=== PATIENT | female | born 1940 | race Caucasian/White ===

== ENCOUNTER → 2018-02-05 08:09 | Outpatient (CLI) | payer MEDICARE, OTHER, SELFPAY | PROVIDERS: PCP Family Medicine; Visit Provider Nurse Practitioner Gerontology | DX: C50.912 Malignant neoplasm of unspecified site of left female breast (principal); Z53.9 Procedure and treatment not carried out, unspecified reason ==

== ENCOUNTER → 2018-08-07 08:02 | Outpatient (CLI) | payer MEDICARE, OTHER, SELFPAY ==
[2018-08-07 08:59] LABS: Add Manual Diff / Slide Review NO; Basophils Percent Auto 0.4 % (0-2); Eosinophils Percent Auto 1.3 % (2-4); Hematocrit 45.6 % (36-46); Lymphocytes Percent Auto 23.6 % (25-40); Mean Corpuscular Hemoglobin 32.5 PG (26-34); Mean Corpuscular Volume 92.8 fL (80-100); Monocytes Percent Auto 8.5 % (3-14); Neutrophils Absolute Auto 4400 /uL (3000-5900); Neutrophils Percent Auto 66.2 % (50-75); Platelet Count 218 X10^3/uL (150-400); Red Blood Cell Count 4.92 X10^6/uL (4.0-5.2); Red Cell Distribution Width 14.3 % (11.6-14.8); White Blood Cell Count 6.7 X10^3/uL (4.5-11.0)
[2018-08-07 09:14] LABS: Alanine Aminotransferase 27 IU/L (9-52); Albumin 4.4 g/dL (3.5-5.0); Albumin Globulin Ratio 1.6 (1.0-2.8); Alkaline Phosphatase 88 U/L (38-126); Aspartate Aminotransferase 25 IU/L (14-36); BUN Creatinine Ratio 17.5 (6-22); Bilirubin Total 0.6 mg/dL (0.2-1.3); Blood Urea Nitrogen 14 mg/dL (7-17); Calcium 9.3 mg/dL (8.4-10.2); Carbon Dioxide 30 mmol/L (22-32); Chloride 94 mmol/L (98-107); Estimated Glomerular Filt Rate > 60.0 mL/min (>60); Globulin 2.8 g/dL (1.7-4.1); Glucose 117 mg/dL (80-110); HEMOLYSIS < 15 (0-50); Potassium 4.8 mmol/L (3.4-5.1); Sodium 134 mmol/L (137-145); Total Protein 7.2 g/dL (6.3-8.2)
[2018-08-07 09:57] LABS: Thyroid Stimulating Hormone 1.56 uIU/mL (0.47-4.68)
== END ==
PROVIDERS: PCP Family Medicine; Visit Provider Nurse Practitioner Gerontology
DX: C50.912 Malignant neoplasm of unspecified site of left female breast (principal); C81.91 Hodgkin lymphoma, unspecified, lymph nodes of head, face, and neck
CPT/HCPCS: 36415; 80053; 84443; 85025

== ENCOUNTER → 2019-08-12 09:30 | Outpatient (CLI) | payer MEDICARE, OTHER, SELFPAY | PROVIDERS: PCP Family Medicine; Visit Provider Internal Medicine Hematology & Oncology | DX: M85.851 Other specified disorders of bone density and structure, right thigh (principal); Z78.0 Asymptomatic menopausal state; C81.70 Other Hodgkin lymphoma, unspecified site; C50.912 Malignant neoplasm of unspecified site of left female breast; E07.1 Dyshormogenetic goiter; Z79.811 Long term (current) use of aromatase inhibitors; F17.200 Nicotine dependence, unspecified, uncomplicated | CPT/HCPCS: 77080; 77081 ==

== ENCOUNTER → 2019-10-08 07:45 | Outpatient (CLI) | payer MEDICARE, OTHER, SELFPAY ==
[2019-10-08 08:03] LABS: Add Manual Diff / Slide Review NO; Basophils Absolute Auto 100 /uL (0-100); Eosinophils Absolute Auto 200 /uL (0-450); Eosinophils Percent Auto 2.6 % (2-4); Hematocrit 46.5 % (36-46); Lymphocytes Absolute Auto 2000 /uL (1100-4500); Lymphocytes Percent Auto 27.1 % (25-40); Mean Corpuscular HGB Conc 34.5 % (30-36); Mean Corpuscular Hemoglobin 33.1 PG (26-34); Mean Corpuscular Volume 96.2 fL (80-100); Monocytes Absolute Auto 700 /uL (0-900); Monocytes Percent Auto 9.3 % (3-14); Neutrophils Absolute Auto 4400 /uL (1500-7000); Platelet Count 183 X10^3/uL (150-400); Red Blood Cell Count 4.83 X10^6/uL (4.0-5.2); Red Cell Distribution Width 14.4 % (11.6-14.8); White Blood Cell Count 7.3 X10^3/uL (4.5-11.0)
[2019-10-08 08:14] LABS: Alanine Aminotransferase 37 IU/L (<35); Albumin 4.3 g/dL (3.5-5.0); Albumin Globulin Ratio 1.5 (1.0-2.8); Alkaline Phosphatase 95 U/L (38-126); Aspartate Aminotransferase 35 IU/L (14-36); BUN Creatinine Ratio 37.3 (6-22); Bilirubin Total 0.8 mg/dL (0.2-1.3); Blood Urea Nitrogen 41 mg/dL (7-17); Calcium 9.3 mg/dL (8.4-10.2); Carbon Dioxide 29 mmol/L (22-32); Chloride 98 mmol/L (98-107); Estimated Glomerular Filt Rate 47.9 mL/min (>60); Globulin 2.9 g/dL (1.7-4.1); Glucose 119 mg/dL (80-110); HEMOLYSIS < 15 (0-50); Potassium 4.9 mmol/L (3.4-5.1); Sodium 135 mmol/L (137-145); Total Protein 7.2 g/dL (6.3-8.2)
== END ==
PROVIDERS: PCP Family Medicine; Visit Provider Internal Medicine Hematology & Oncology
DX: C50.912 Malignant neoplasm of unspecified site of left female breast (principal); C81.70 Other Hodgkin lymphoma, unspecified site
CPT/HCPCS: 36415; 80053; 85025

== ENCOUNTER → 2020-01-07 07:41 | Outpatient (CLI) | payer MEDICARE, OTHER, SELFPAY ==
[2020-01-07 08:11] LABS: Add Manual Diff / Slide Review NO; Basophils Absolute Auto 100 /uL (0-100); Basophils Percent Auto 0.9 % (0-2); Eosinophils Absolute Auto 200 /uL (0-450); Eosinophils Percent Auto 3.1 % (2-4); Hematocrit 47.1 % (36-46); Hemoglobin 15.7 g/dL (12.0-16.0); Lymphocytes Absolute Auto 2100 /uL (1100-4500); Lymphocytes Percent Auto 26.7 % (25-40); Mean Corpuscular HGB Conc 33.3 % (30-36); Mean Corpuscular Hemoglobin 32.5 PG (26-34); Mean Corpuscular Volume 97.6 fL (80-100); Monocytes Absolute Auto 800 /uL (0-900); Monocytes Percent Auto 9.8 % (3-14); Neutrophils Absolute Auto 4700 /uL (1500-7000); Neutrophils Percent Auto 59.5 % (50-75); Platelet Count 195 X10^3/uL (150-400); Red Blood Cell Count 4.82 X10^6/uL (4.0-5.2); Red Cell Distribution Width 14.1 % (11.6-14.8); White Blood Cell Count 7.9 X10^3/uL (4.5-11.0)
[2020-01-07 08:26] LABS: Alanine Aminotransferase 33 IU/L (<35); Albumin 4.3 g/dL (3.5-5.0); Albumin Globulin Ratio 1.4 (1.0-2.8); Alkaline Phosphatase 99 U/L (38-126); Aspartate Aminotransferase 34 IU/L (14-36); Bilirubin Total 0.8 mg/dL (0.2-1.3); Blood Urea Nitrogen 38 mg/dL (7-17); Calcium 9.6 mg/dL (8.4-10.2); Carbon Dioxide 31 mmol/L (22-32); Chloride 95 mmol/L (98-107); Estimated Glomerular Filt Rate 45.5 mL/min (>60); Glucose 120 mg/dL (80-110); HEMOLYSIS 40 (0-50); Lactate Dehydrogenase 546 U/L (313-618); Sodium 132 mmol/L (137-145); Total Protein 7.3 g/dL (6.3-8.2)
[2020-01-07 08:27] LABS: Potassium 5.9 mmol/L (3.4-5.1)
[2020-01-07 08:56] LABS: Thyroid Stimulating Hormone 2.77 uIU/mL (0.47-4.68)
== END ==
PROVIDERS: PCP Family Medicine; Referring Provider Internal Medicine Hematology & Oncology; Visit Provider Internal Medicine Hematology & Oncology
DX: C81.70 Other Hodgkin lymphoma, unspecified site (principal)
CPT/HCPCS: 36415; 80053; 83615; 84443; 85025

== ENCOUNTER → 2021-02-28 10:47 | Outpatient (CLI) | payer MEDICARE, OTHER, SELFPAY ==
--- NOTE | 2021-02-28 10:49 | DI.US.S_ITS ---
LIMITED ULTRASOUND OF LEFT BREAST AND AXILLA: 02/28/2021 CLINICAL: Palpable left breast lump and focal pain. Comparison is made to exams dated: 05/21/2016 ultrasound biopsy, 05/09/2016 ultrasound, and 05/09/2016 mammogram [facility]. Color flow ultrasound of the left breast axilla was performed. Toscano scale images of the real-time examination were reviewed. There is a large area of subcutaneous edema and increased vascularity in the upper-outer quadrant of the left breast with overlying skin thickening, which corresponds to the palpable abnormality. Within this area at the 2-3 o'clock position, there is a 2.7 x 0.6 x 1.0 cm irregular hypoechoic lesion that may represent an inflammatory phlegmon, postsurgical scarring, or less likely a solid mass. Multiple enlarged nodes are seen in the left axilla, the largest of which measures up to 5.5 x 2.3 x 5.8 cm. These are most likely reactive to the presumed infectious process in the left breast. IMPRESSION: PROBABLY BENIGN A 2.7 x 0.6 x 1.0 cm irregular hypoechoic lesion in the left breast with surrounding subcutaneous edema, increased vascularity, and skin thickening most likely represents mastitis and phlegmon without a drainable abscess visualized. Superimposed postsurgical scarring and posttreatment changes may be present. An underlying breast mass is not excluded. Recommend clinical treatment for infection and a short-term follow-up ultrasound in 3 months to demonstrate improvement or resolution of findings. If not improving, tissue biopsy could be performed. Contrast-enhanced breast MRI could be performed for further evaluation if indicated clinically. Multiple enlarged left axillary lymph nodes are likely reactive, although venkatesh metastatic disease or lymphoma could appear similarly. Recommend follow-up ultrasound in 3 months to revaluate the lymphadenopathy. If not improving, biopsy could be performed at that time. A follow-up left ultrasound in 3 months is recommended. This exam was interpreted at Station ID: [id number]. Electronically Signed By: Beryn howell:02/28/2021 12:57:29 copy to: SIMIN CORRAL letter sent: Followup Recommended Ultrasound BI-RADS: 3 Probably benign
== END ==
PROVIDERS: PCP Family Medicine; Referring Provider Internal Medicine Hematology & Oncology; Visit Provider Internal Medicine Hematology & Oncology
DX: C50.912 Malignant neoplasm of unspecified site of left female breast; N63.21 Unspecified lump in the left breast, upper outer quadrant; N64.4 Mastodynia; R59.0 Localized enlarged lymph nodes; R60.0 Localized edema
CPT/HCPCS: 76642

== ENCOUNTER → 2021-03-03 13:39 | Outpatient (CLI) | payer MEDICARE, OTHER, SELFPAY ==
--- NOTE | 2021-03-03 13:44 | DI.US.S_ITS ---
PROCEDURE: US PERIPH VENOUS UP EXTREM LT INDICATIONS: R/O DVT TECHNIQUE: Real-time imaging, as well as color and pulse Doppler interrogation, was performed of the bilateral upper extremity deep veins from the inferior neck to the antecubital fossa. COMPARISON: None. FINDINGS: The internal jugular vein, visualized portions of the subclavian vein, axillary, and brachial veins are free of intraluminal thrombus. Where physically possible, the veins are normally compressible. Color and pulse Doppler demonstrate normal intraluminal flow, with expected phasicity and pulsatility. Additional scanning of the cephalic and basilic veins of the superficial system demonstrate normal compressibility, without thrombus. IMPRESSION: No DVT found , left upper extremity. Dictated by: Himanshu Austin M.D. on 03/03/2021 at 15:11 Approved by: Himanshu Austin M.D. on 03/03/2021 at 15:12
== END ==
PROVIDERS: PCP Family Medicine; Referring Provider Specialist; Visit Provider Specialist
DX: R60.0 Localized edema (principal); L03.114 Cellulitis of left upper limb; Z90.13 Acquired absence of bilateral breasts and nipples
CPT/HCPCS: 93971; 99213

== ENCOUNTER 2021-03-14 16:10 | Inpatient (IN) | payer MEDICARE, OTHER, SELFPAY ==
[2021-03-14] VITALS (15 sets, daily range): BP systolic 96–127; BP diastolic 44–73; PULSE 93–117; RESP 18–37; TEMP 36.6–37.2; O2SAT 85–94; BMI 30.4
--- NOTE | 2021-03-14 16:29 | DI.RAD.S_ITS ---
PROCEDURE: XR CHEST 1V INDICATIONS: suspected sepsis TECHNIQUE: One view of the chest was acquired. COMPARISON: [facility], , CHEST 2 VIEW, 08/28/2012, 9:44. FINDINGS: Surgical changes and devices: None. Lungs and pleura: Mild diffuse interstitial prominence. There is a small left pleural effusion. Patchy left basilar airspace opacities are noted. Minimal streaky low right basilar opacities. No pneumothorax. Mediastinum: Mediastinal contours appear stable. Heart size is normal. Bones and chest wall: No suspicious bony lesions. Overlying soft tissues appear unremarkable. IMPRESSION: Patchy left basilar airspace opacities which may represent atelectasis and/or concurrent airspace disease/pneumonia. Small left pleural effusion. Streaky right basilar opacities likely representing atelectasis. Recommend follow up chest radiograph 4-6 weeks after treatment to document resolution of findings and/or return to baseline examination. Dictated by: Toni Teague M.D. on 03/14/2021 at 17:31 Approved by: Toni Teague M.D. on 03/14/2021 at 17:32
[2021-03-14 16:55] LABS: Alanine Aminotransferase 32 IU/L (<35); Albumin 3.9 g/dL (3.5-5.0); Albumin Globulin Ratio 1.4 (1.0-2.8); Alkaline Phosphatase 129 U/L (38-126); Aspartate Aminotransferase 48 IU/L (14-36); BUN Creatinine Ratio 23.6 (6-22); Bilirubin Total 0.4 mg/dL (0.2-1.3); Blood Urea Nitrogen 37 mg/dL (7-17); Carbon Dioxide 31 mmol/L (22-32); Chloride 87 mmol/L (98-107); Estimated Glomerular Filt Rate 31.7 mL/min (>60); Globulin 2.7 g/dL (1.7-4.1); Glucose 103 mg/dL (80-110); HEMOLYSIS < 15 (0-50); Lactate (Lactic Acid) 1.1 mmol/L (0.7-2.1); Lipase 128 U/L (23-300); Sodium 123 mmol/L (137-145); Total Protein 6.6 g/dL (6.3-8.2)
[2021-03-14 16:57] LABS: Potassium 5.9 mmol/L (3.4-5.1)
[2021-03-14 17:02] LABS: Add Manual Diff / Slide Review NO; Basophils Absolute Auto 100 /uL (0-100); Basophils Percent Auto 0.7 % (0-2); Eosinophils Absolute Auto 300 /uL (0-450); Eosinophils Percent Auto 3.9 % (2-4); Hematocrit 34.7 % (36-46); Hemoglobin 11.9 g/dL (12.0-16.0); Lymphocytes Absolute Auto 800 /uL (1100-4500); Lymphocytes Percent Auto 9.8 % (25-40); Mean Corpuscular HGB Conc 34.3 % (30-36); Mean Corpuscular Hemoglobin 32.7 PG (26-34); Mean Corpuscular Volume 95.3 fL (80-100); Monocytes Absolute Auto 600 /uL (0-900); Monocytes Percent Auto 7.9 % (3-14); Neutrophils Absolute Auto 6100 /uL (1500-7000); Neutrophils Percent Auto 77.7 % (50-75); Platelet Count 296 X10^3/uL (150-400); Red Blood Cell Count 3.64 X10^6/uL (4.0-5.2); Red Cell Distribution Width 16.6 % (11.6-14.8); White Blood Cell Count 7.9 X10^3/uL (4.5-11.0)
[2021-03-14 17:10] LABS: Procalcitonin 0.07 ng/mL (<0.5)
[2021-03-14 17:52] LABS: Creatine Kinase 63 U/L (30-135)
[2021-03-14 18:05] LABS: NT-proBNP (BNP-Adult 18+) 4030 pg/mL (<450); Troponin I < 0.012 ng/mL (0.01-0.034)
[2021-03-14] MEDS: SODIUM CHLORIDE 0.9% 1,000 ML 500 ML IV (18:58)
--- NOTE | 2021-03-14 19:11 | ED.GENADULT ---
HPI - General Adult General Chief complaint: Shortness of Breath/Dyspnea Stated complaint: sent by surgeons office to be treated Time Seen by Provider: 03/14/21 17:33 Source: patient Mode of arrival: Wheelchair History of Present Illness HPI narrative: Patient is an 80-year-old female. Is on anticoagulation for chronic atrial fibrillation. She has also had a history of breast cancer. Had a mastectomy done several years ago. States that since that time she occasionally gets infections around her left breast mastectomy surgery site. She states she currently has an infection there and is being treated with antibiotics. She has seen General surgery. She has also noticed that for the past several days she has been very short of breath on exertion. She denies any chest pain. She contacted the General surgery office because she felt that the infection in her left breast was not improving. She was told to come to the emergency department yesterday but did not because she [place] on [address] [place] could not make it over on the [place]. She arrives today for evaluation. Related Data Home Medications Medication Instructions Recorded Confirmed CA PANTOTHENATE/FOLIC ACID/VIT 1 tab PO QDAY #0 12/25/12 03/14/21 (MULTIVITAMIN) CHOLECALCIFEROL (VITAMIN D) 2,000 iu PO Q DAY #0 12/25/12 03/14/21 Lactobacillus acidophilus 1 tab PO QDAY #0 08/03/16 03/14/21 albuterol sulfate 90 mcg/actuation 2 puff INH HSP PRN #0 08/20/17 03/14/21 aerosol inhaler (Proventil HFA) levothyroxine 175 mcg tablet 0.15 mg PO QAM 08/07/18 03/14/21 albuterol sulfate 90 mcg/actuation 1 puff INHALATION Q4-6H PRN 02/03/19 03/14/21 aerosol inhaler (ProAir HFA) apixaban 5 mg tablet 5 mg PO BID 02/03/19 03/14/21 aspirin 81 mg chewable tablet 81 mg PO DAILY 02/03/19 03/14/21 atorvastatin 40 mg tablet 40 mg PO BEDTIME 02/03/19 03/14/21 furosemide 40 mg tablet 40 mg PO DAILY 02/03/19 03/14/21 lisinopril 5 mg tablet 5 mg PO DAILY 02/03/19 03/14/21 metoprolol succinate 25 mg capsule 25 mg PO BID 02/03/19 03/14/21 sprinkle, ext. release 24 hr multivitamin 1 cap PO DAILY 02/03/19 03/14/21 nicotine 21 mg/24 hr daily 1 patch TRANSDERMAL Q24H 02/03/19 03/03/21 transdermal patch (Nicoderm CQ) nitroglycerin 1 tab PRN 09/10/19 03/03/21 spironolactone 25 mg tablet 12.5 mg PO DAILY 09/10/19 03/14/21 tiotropium bromide 18 mcg capsule INHALATION 02/18/20 03/03/21 with inhalation device (Spiriva with HandiHaler) Previous Rx's Medication Instructions Recorded zoster vaccine live (PF) 19,400 0.5 ml SQ STAT #1 ml 11/09/16 unit/0.65 mL subcutaneous suspension (Zostavax (PF)) ciclopirox 8 % topical solution 3.3 ml TP QDAY #1 bot 05/22/17 (Ciclodan) exemestane 25 mg tablet (Aromasin) 25 mg PO QDAY #30 tab 01/30/21 cephalexin 500 mg capsule 500 mg PO QID #40 cap 03/03/21 sulfamethoxazole 800 1 tab PO Q12H #20 tab 03/10/21 mg-trimethoprim 160 mg tablet (Bactrim DS) Allergies Allergy/AdvReac Type Severity Reaction Status Date / Time acetaminophen [From TYLENOL] Allergy Severe RASH, Unverified 12/18/17 12:40 ITCHING cephalexin Allergy Intermediate Severe Verified 03/10/21 14:38 itching cortisone [CORTISONE] Allergy Intermediate HIVES Unverified 12/18/17 12:40 latex [LATEX] Allergy Mild WELTS Unverified 12/18/17 12:40 desoximetasone Allergy Unknown Rash Verified 08/07/18 14:02 omeprazole [From PRILOSEC] Allergy Unknown RASH Unverified 12/18/17 12:40 triamcinolone Allergy Unknown Rash Verified 08/07/18 14:03 Review of Systems Constitutional Comments: No fevers ENT Ears, Nose, Mouth, and Throat: Reports system reviewed and no additional complaints, except as documented Cardiovascular Comments: No chest pain Respiratory Comments: Shortness of breath on exertion Gastrointestinal Gastrointestinal: Reports system reviewed and no additional complaints, except as documented Genitourinary Genitourinary: Reports system reviewed and no additional complaints, except as documented Musculoskeletal Comments: Left arm swelling. This is not new Integumentary/Breasts Comments: Redness to the left-sided mastectomy site Neurologic Neurologic: Reports system reviewed and no additional complaints, except as documented Psychiatric Psychiatric: Reports system reviewed and no additional complaints, except as documented Endocrine Endocrine: Reports system reviewed and no additional complaints, except as documented Hematologic/Lymphatic On Anticoagulants: Yes Allergic/Immunologic Allergic/Immunologic: Reports system reviewed and no additional complaints, except as documented Patient History Medical History Breast cancer, left CHF (congestive heart failure) 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) Ischemic cardiomyopathy Status post bilateral mastectomy (11/09/16) Surgical History History of left heart catheterization Status post bilateral mastectomy Status post hysterectomy Family History Father Heart disease Polio Daughter Breast cancer in female Social History marital status: household members: spouse occupational status: employed Smoking Status: Current every day smoker alcohol intake: current substance use type: does not use Smoking Status: Never smoker Exam Initial Vital Signs Initial Vital Signs: Vital Signs Temperature 98.9 F 03/14/21 16:12 Pulse Rate 99 H 03/14/21 16:12 Respiratory Rate 24 03/14/21 16:12 Blood Pressure 127/62 03/14/21 16:12 Pulse Oximetry 92 03/14/21 16:12 Const General: cooperative and healthy appearing [facility] Head: normal to inspection and normocephalic Eyes General: appearance normal, both eyes and all related structures Neck Neck: normal visual inspection Chest Other: Left side mastectomy psych consistent with stated history Resp Auscultation: clear to auscultation bilaterally Cardio Rate: regular rate Rhythm: abnormal rhythm GI Inspection: normal to inspection Skin Other: Patient does have redness under some of the skin folds around her left breast mastectomy site. She does have dimpling of the skin. It is warm to the touch. No active drainage. Neuro General: patient alert, patient awake and patient oriented x3 Extrem Other: Swelling to her left upper extremity Psych Appearance: grossly normal and well kempt Course Orders Ordered: ED Orders 03/14/21 18:50 COVID19 - ADMIT ([employer] swab/PCR) Stat 03/14/21 19:37 Consult to General Surgery Stat Apixaban (Apixaban 5 Mg Tablet) 5 mg PO BID [facility] Last Admin: 03/15/21 00:16 Dose: 5 mg Documented by: ZACK Aspirin (Aspirin Ec 81 Mg Tablet) 81 mg PO DAILY [facility] Atorvastatin Calcium (Atorvastatin 20 Mg Tablet) 40 mg PO BEDTIME [facility] Last Admin: 03/15/21 00:15 Dose: 40 mg Documented by: ZACK Exemestane (Exemestane 25 Mg Tablet) 25 mg PO DAILY [facility] Furosemide (Furosemide 40 Mg/4 Ml Vial) 40 mg IV DAILY [facility] Ampicillin Sodium/Sulbactam (Sodium 3 gm/ Sodium Chloride) 100 mls @ 100 mls/hr IV Q6H [facility] Last Admin: 03/15/21 00:41 Dose: 100 mls/hr Documented by: ZACK Ipratropium [place] (Ipratropium 0.5 Mg/2.5 Ml Neb) 0.5 mg INH [id number] [facility] Last Admin: 03/14/21 22:36 Dose: 0.5 mg Documented by: HYUN Ipratropium [place] (Ipratropium 0.5 Mg/2.5 Ml Neb) 0.5 mg INH RTQ2HR PRN PRN Reason: Shortness Of Breath Or Wheezing Isosorbide Mononitrate (Isosorbide Mononitrate Er 30 Mg Tablet) 60 mg PO QACBREAK [facility] Levothyroxine Sodium (Levothyroxine 150 Mcg Tablet) 150 mcg PO 0600 [facility] Lisinopril (Lisinopril 5 Mg Tablet) 5 mg PO DAILY [facility] Metoprolol Succinate (Metoprolol Er 25 Mg Tablet) 25 mg PO BID [facility] Naloxone HCl (Naloxone 0.4 Mg/Ml Vial) 0.2 mg IV Q2MIN PRN PRN Reason: Opiate Reversal Nicotine (Nicotine 14 Patch) 14 mg TOP DAILY [facility] Last Admin: 03/15/21 00:16 Dose: Not Given Documented by: ZACK Nystatin (Nystatin Powder 15gm) 1 applic TOP TID PRN PRN Reason: Rash Last Admin: 03/15/21 00:15 Dose: 15 applic Documented by: ZACK Tramadol HCl (Tramadol 50 Mg Tablet) 50 mg PO BEDTIME [facility] Last Admin: 03/15/21 00:16 Dose: 50 mg Documented by: ZACK Discontinued Medications Furosemide (Furosemide 100 Mg/10 Ml Vial) 60 mg IV NOW ONE Stop: 03/14/21 19:26 Last Admin: 03/14/21 19:38 Dose: 60 mg Documented by: JOSELYNYLMARINA Sodium Chloride (Normal Saline 0.9%) 1,000 mls @ 1,000 mls/hr IV BOLUS ONE Stop: 03/14/21 17:27 Last Admin: 03/14/21 18:59 Dose: Not Given Documented by: ATAYLOR Sodium Chloride (Normal Saline 0.9%) 1,000 mls @ 500 mls/hr IV BOLUS ONE Stop: 03/14/21 19:33 Last Infusion: 03/14/21 20:00 Dose: 0 mls/hr Documented by: Admin: 03/14/21 18:58 Dose: 500 mls/hr Documented by: STEFANIA Vancomycin HCl (Vancomycin) 1,000 mg in 200 mls @ 200 mls/hr IV NOW ONE Stop: 03/14/21 20:24 Last Infusion: 03/14/21 21:00 Dose: 0 mls/hr Documented by: Infusion: 03/14/21 21:00 Dose: 0 mls/hr Documented by: Admin: 03/14/21 19:39 Dose: 200 mls/hr Documented by: STEFANIA Non-Formulary Medication (Tiotropium [place] [Spiriva With Handihaler]) 18 mcg INHALATION DAILY [facility] Vital Signs Vital signs: Vital Signs - 8 hr 03/14/21 19:30 Pulse Rate 98 H Respiratory Rate 26 H Pulse Oximetry 85 L Medical Decision Making Medical Records Medical records reviewed: Yes I reviewed the patient's medical records. Lab Data Lab results reviewed: Yes I reviewed the patient's lab results. Result diagrams: 03/14/21 16:35 03/14/21 16:35 Labs: Lab Results 03/14/21 03/14/21 03/14/21 Range/Units 16:35 16:35 16:35 WBC 7.9 (4.5-11.0) X10^3/uL RBC 3.64 L (4.0-5.2) X10^6/uL Hgb 11.9 L (12.0-16.0) g/dL Hct 34.7 L (36-46) % MCV 95.3 (80-100) fL MCH 32.7 (26-34) PG MCHC 34.3 (30-36) % RDW 16.6 H (11.6-14.8) % Plt Count 296 (150-400) X10^3/uL Neut % (Auto) 77.7 H (50-75) % Lymph % (Auto) 9.8 L (25-40) % Page % (Auto) 7.9 (3-14) % Eos % (Auto) 3.9 (2-4) % Baso % (Auto) 0.7 (0-2) % Neut # (Auto) 6100 (5031-8502) /uL Lymph # (Auto) 800 L (9662-8243) /uL Page # (Auto) 600 (0-900) /uL Eos # (Auto) 300 (0-450) /uL Baso # (Auto) 100 (0-100) /uL Sodium 123 L (137-145) mmol/L Potassium 5.9 H (3.4-5.1) mmol/L Chloride 87 L (98-107) mmol/L Carbon Dioxide 31 (22-32) mmol/L BUN 37 H (7-17) mg/dL Creatinine 1.57 H (0.52-1.04) mg/dL Estimated GFR 31.7 L (>60) mL/min BUN/Creatinine Ratio 23.6 H (6-22) Glucose 103 (80-110) mg/dL Lactate 1.1 (0.7-2.1) mmol/L Calcium 9.0 (8.4-10.2) mg/dL Magnesium (1.6-2.3) mg/dL Total Bilirubin 0.4 (0.2-1.3) mg/dL AST 48 H (14-36) IU/L ALT 32 (<35) IU/L Alkaline Phosphatase 129 H (38-126) U/L Total Creatine Kinase (30-135) U/L CK-MB (CK-2) CK-MB (CK-2) Rel Index Troponin I (0.01-0.034) ng/mL NT-Pro-B Natriuret Pep (<450) pg/mL Total Protein 6.6 (6.3-8.2) g/dL Albumin 3.9 (3.5-5.0) g/dL Globulin 2.7 (1.7-4.1) g/dL Albumin/Globulin Ratio 1.4 (1.0-2.8) Lipase 128 (23-300) U/L Procalcitonin 0.07 (<0.5) ng/mL SARS-CoV-2 (PCR) (Negative) 03/14/21 03/14/21 03/14/21 Range/Units 16:35 16:35 18:50 WBC (4.5-11.0) X10^3/uL RBC (4.0-5.2) X10^6/uL Hgb (12.0-16.0) g/dL Hct (36-46) % MCV (80-100) fL MCH (26-34) PG MCHC (30-36) % RDW (11.6-14.8) % Plt Count (150-400) X10^3/uL Neut % (Auto) (50-75) % Lymph % (Auto) (25-40) % Page % (Auto) (3-14) % Eos % (Auto) (2-4) % Baso % (Auto) (0-2) % Neut # (Auto) (6231-8623) /uL Lymph # (Auto) (9693-9785) /uL Page # (Auto) (0-900) /uL Eos # (Auto) (0-450) /uL Baso # (Auto) (0-100) /uL Sodium (137-145) mmol/L Potassium (3.4-5.1) mmol/L Chloride (98-107) mmol/L Carbon Dioxide (22-32) mmol/L BUN (7-17) mg/dL Creatinine (0.52-1.04) mg/dL Estimated GFR (>60) mL/min BUN/Creatinine Ratio (6-22) Glucose (80-110) mg/dL Lactate (0.7-2.1) mmol/L Calcium (8.4-10.2) mg/dL Magnesium 2.1 (1.6-2.3) mg/dL Total Bilirubin (0.2-1.3) mg/dL AST (14-36) IU/L ALT (<35) IU/L Alkaline Phosphatase (38-126) U/L Total Creatine Kinase 63 (30-135) U/L CK-MB (CK-2) TNP CK-MB (CK-2) Rel Index TNP Troponin I < 0.012 (0.01-0.034) ng/mL NT-Pro-B Natriuret Pep 4030 H (<450) pg/mL Total Protein (6.3-8.2) g/dL Albumin (3.5-5.0) g/dL Globulin (1.7-4.1) g/dL Albumin/Globulin Ratio (1.0-2.8) Lipase (23-300) U/L Procalcitonin (<0.5) ng/mL SARS-CoV-2 (PCR) Negative (Negative) Imaging Data Chest x-ray: Radiologist's Impression: [address] [id number] ReportSigned Patient: Deborah Samuels LMR#: [id number]: 1940Acct:[id number]/Sex: 80 / FDate of Service: 03/14/21Loc: EDAccession Number: [id number] Procedure: XR chest 1V Ordering Provider: Jennifer Shields D.O. PROCEDURE: XR CHEST 1V INDICATIONS: suspected sepsis TECHNIQUE: One view of the chest was acquired. COMPARISON: [facility], CHEST 2 VIEW, 08/28/2012, 9:44. FINDINGS: Surgical changes and devices: None. Lungs and pleura: Mild diffuse interstitial prominence. There is a small left pleural effusion. Patchy left basilar airspace opacities are noted. Minimal streaky low right basilar opacities. No pneumothorax. Mediastinum: Mediastinal contours appear stable. Heart size is normal. Bones and chest wall: No suspicious bony lesions. Overlying soft tissues appear unremarkable. IMPRESSION: Patchy left basilar airspace opacities which may represent atelectasis and/or concurrent airspace disease/pneumonia. Small left pleural effusion. Streaky right basilar opacities likely representing atelectasis. Recommend follow up chest radiograph 4-6 weeks after treatment to document resolution of findings and/or return to baseline examination. Dictated by: Toni Teague M.D. on 03/14/2021 at 17:31 Approved by: Toni Teague M.D. on 03/14/2021 at 17:32 ECG Data Interpretation: Atrial fibrillation Ventricular rate 99 Normal axis QRS 100 milliseconds Normal QTC Nonspecific ST T wave changes MDM Narrative Medical decision making narrative: Patient has had dyspnea on exertion and also has an elevated BNP. She is in AFib on her EKG but this is chronic for her and she is anticoagulated. Given her presentation I do have suspicion of a CHF exacerbation. She was given Lasix. She is on antibiotics for an infection of the mastectomy site on her left anterior chest wall. There is redness and warmth and skin changes to this area as well. Patient states that she feels like this infection is worsening. I did discuss the case with Dr. Pelaez who was on-call for General surgery who recommended the patient be admitted to the medicine service given her other medical issues. I then discussed the case with ARTURO [facility]lgas [facility] provider who will admit for further evaluation treatment. Discussed the admission with the patient. She expressed understanding and agreement. Discharge Plan Departure Patient Disposition: Admitted As Inpatient Clinical Impression: CHF (congestive heart failure), Cellulitis, Hyponatremia, Acute kidney injury Admit Date/Time: 03/14/21 19:53 Admit Provider: Sania Douglas
[2021-03-14] MEDS: FUROSEMIDE 100 MG/10 ML VIAL 60 MG IV (19:38)
[2021-03-14] MEDS: VANCOMYCIN 1,000 MG/200 ML PIGGYBACK 200 MG IV (19:39)
[2021-03-14 20:43] LABS: RBC Urine None Seen (0-5/HPF)
[2021-03-14 20:54] LABS: Appearance Urine UA CLEAR; Bilirubin Urine UA NEGATIVE (NEGATIVE); Color Urine UA YELLOW; Glucose Urine UA NEGATIVE (Negative); Ketones Urine UA NEGATIVE (NEGATIVE); Leukocyte Esterase Urine UA 1+ (NEGATIVE); Nitrite Urine UA NEGATIVE (Negative); Occult Blood Urine UA NEGATIVE (Negative); Protein Urine UA NEGATIVE (Negative); Specific Gravity Urine UA 1.015 (1.000-1.035); Urobilinogen Urine UA 0.2 E.U./dL (0.2)
[2021-03-14 21:16] LABS: COVID19 - ADMIT (NP swab/PCR) Negative (Negative)
[2021-03-14 21:21] LABS: pH Urine UA 5.5 (4.5-8.0)
[2021-03-14 21:31] LABS: Bacteria Urine Occasional (0-1); Culture Indicated Urine Specimen Cultured; Squamous Epithelial Cell Urine 1-5 /HPF (0-5/HPF); WBC Urine 1-5/HPF (0-5/HPF)
[2021-03-14 21:47] LABS: Magnesium 2.1 mg/dL (1.6-2.3)
--- NOTE | 2021-03-14 21:49 | P.HP_ITS ---
History of Present Illness History of Present Illness Date Patient Seen: 03/14/21 Time Patient Seen: 20:00 Chief complaint: Cellulitis of the left breast, CHF exacerbation Narrative: Deborah Samuels is an 80 y.o. smoking female with current diagnoses of congestive heart failure secondary to ischemic cardiomyopathy, coronary artery disease, persistent atrial fibrillation, hypertension, hyperlipidemia, COPD, Hodgkin's lymphoma considered to be in remission, and left breast invasive ductal carcinoma stage II T2 N0 with mastectomy done in 2016 presented today with mehul rtness of breath, fatigue, found to be hypoxic in the low 90% oxygen saturation in the emergency department and a suspected cellulitis of the left breast. She was also found to be hyponatremic with a sodium of 123. She states that she has been short of breath for months, she denies having a fever, she does endorse having gained weight over the past month due to not eating properly, she has pain in her left breast an arm and states that it swelling and hot on her upper arm. She denies chest wall pain she denies cardiac pain denies nausea or vomiting, she does endorse having less than usual urinary output, she does have chronic constipation. In the emergency department the patient was examined and had a chest x-ray indicating left basilar atelectasis, left pleural effusion. Patient currently is afebrile, blood pressure is currently 96/44, heart rate 95, respiratory rate 18, oxygen saturation 93% on room air, she weighs 90.7 kg with a BMI of 30.4. WBC is 7.9, RBC 3.64, hemoglobin 11.9, hematocrit 34.7, platelet count 296, her sodium is 123, potassium 5.9, chloride 87, bicarb 31, BUN 37, creatinine 1.57 which is elevated over baseline, with a GFR of 31.7, AST is 48, alk-phos is 129, she has a normal troponin, proBNP is 4030, procalcitonin is 0.7, UA is negative for a UTI, and COVID-19 PCR is negative. Patient initially presented to her oncologist Dr. Espinoza with complaints of a mass over her left breast. The patient is currently taking exemestane, a chemotherapeutic agent and was seen by him on February 22. He was concerned about the mass being a seroma and at that time estimated it was 6 x 8 cm with the pew to orange appearance and mild erythema. She was referred to ultrasound and then referred to general surgery for further evaluation. He ultrasound done on the 28 of February indicated a large area of subcutaneous edema and increased vascularity in the upper outer quadrant of the left breast with underlying skin thickening that corresponded to the palpable out abnormality. They also indicated presence of a 2.7 x 0.6 by 1.0 cm irregular hypoechoic lesion that was concerning for an inflammatory phlegmon, postsurgical scarring or less likely a solid mass. The ultrasound recommended treatment for an infection though did not exclude an underlying breast mass. She was then seen by General surgery on March 03 who started the patient on Keflex 500 mg q.i.d. with a request for a 2 week recall and re-evaluation. His note indicated that the large lymph node was concerning for possibly reactive versus is recurrence of lymphoma. The patient sees Dr. Muñiz, of [facility] who is currently treating her for coronary artery disease and ischemic cardiomyopathy. She underwent right and left radial cardiac catheterization in November of this year that indicated she had an ostial LAD with 40-50% stenosis and mid ED with calcific 40% doses. She also has chronic total occlusion of the mid left circumflex and ostial right circumflex artery with no [id number] for left to right collaterals seen. New findings included normal caliber left LAD with 70% stenosis of the ostium and calcific 40% stenosis in the midvessel, left circum plaques with normal caliber vessels and total occlusion in the mid segment and the right RCA had total chronic occlusion at the ostium. Recommendation was for a high risk PCI to be done at the [facility], the patient had been previously turned down for a CABG due to her previous chest radiation and and was considered too high of a risk to have PCI performed at [facility]. It appears as if she has not undergone the PCI. Patient History Medical History Breast cancer, left CHF (congestive heart failure) 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) Ischemic cardiomyopathy Status post bilateral mastectomy (11/09/16) Surgical History History of left heart catheterization Status post bilateral mastectomy Status post hysterectomy Family & Social History Family History Father Heart disease Polio Daughter Breast cancer in female Social History: household members spouse Tobacco & Substance use: Smoking Status 5+ cigs/day alcohol intake current Meds Home Medications and Allergies Home Medications Medication Instructions Recorded Confirmed Type CA PANTOTHENATE/FOLIC ACID/VIT 1 tab PO QDAY #0 12/25/12 03/14/21 History (MULTIVITAMIN) CHOLECALCIFEROL (VITAMIN D) 2,000 iu PO Q DAY #0 12/25/12 03/14/21 History Lactobacillus acidophilus 1 tab PO QDAY #0 08/03/16 03/14/21 History zoster vaccine live (PF) 19,400 0.5 ml SQ STAT #1 ml 11/09/16 03/14/21 Rx unit/0.65 mL subcutaneous suspension (Zostavax (PF)) ciclopirox 8 % topical solution 3.3 ml TP QDAY #1 bot 05/22/17 03/14/21 Rx (Ciclodan) albuterol sulfate 90 mcg/actuation 2 puff INH HSP PRN #0 08/20/17 03/14/21 History aerosol inhaler (Proventil HFA) levothyroxine 175 mcg tablet 0.15 mg PO QAM 08/07/18 03/14/21 History albuterol sulfate 90 mcg/actuation 1 puff INHALATION Q4-6H PRN 02/03/19 03/14/21 History aerosol inhaler (ProAir HFA) apixaban 5 mg tablet 5 mg PO BID 02/03/19 03/14/21 History aspirin 81 mg chewable tablet 81 mg PO DAILY 02/03/19 03/14/21 History atorvastatin 40 mg tablet 40 mg PO BEDTIME 02/03/19 03/14/21 History furosemide 40 mg tablet 40 mg PO DAILY 02/03/19 03/14/21 History lisinopril 5 mg tablet 5 mg PO DAILY 02/03/19 03/14/21 History metoprolol succinate 25 mg capsule 25 mg PO BID 02/03/19 03/14/21 History sprinkle, ext. release 24 hr multivitamin 1 cap PO DAILY 02/03/19 03/14/21 History nicotine 21 mg/24 hr daily 1 patch TRANSDERMAL Q24H 02/03/19 03/03/21 History transdermal patch (Nicoderm CQ) nitroglycerin 1 tab PRN 09/10/19 03/03/21 History spironolactone 25 mg tablet 12.5 mg PO DAILY 09/10/19 03/14/21 History tiotropium bromide 18 mcg capsule INHALATION 02/18/20 03/03/21 History with inhalation device (Spiriva with HandiHaler) exemestane 25 mg tablet (Aromasin) 25 mg PO QDAY #30 tab 01/30/21 03/14/21 Rx cephalexin 500 mg capsule 500 mg PO QID #40 cap 03/03/21 03/14/21 Rx sulfamethoxazole 800 1 tab PO Q12H #20 tab 03/10/21 03/14/21 Rx mg-trimethoprim 160 mg tablet (Bactrim DS) Allergies Allergy/AdvReac Type Severity Reaction Status Date / Time acetaminophen [From TYLENOL] Allergy Severe RASH, Unverified 12/18/17 12:40 ITCHING cephalexin Allergy Intermediate Severe Verified 03/10/21 14:38 itching cortisone [CORTISONE] Allergy Intermediate HIVES Unverified 12/18/17 12:40 latex [LATEX] Allergy Mild WELTS Unverified 12/18/17 12:40 desoximetasone Allergy Unknown Rash Verified 08/07/18 14:02 omeprazole [From PRILOSEC] Allergy Unknown RASH Unverified 12/18/17 12:40 triamcinolone Allergy Unknown Rash Verified 08/07/18 14:03 Review of Systems Review of Systems ROS: Yes All systems reviewed with the patient and are negative except as otherwise documented Exam Vital Signs (past 8 hours): - 03/14/21 16:12 03/14/21 17:23 03/14/21 17:30 Temperature 98.9 F Pulse Rate 99 H 101 H 96 H Respiratory Rate 24 37 H 22 Blood Pressure 127/62 Pulse Oximetry 92 94 94 03/14/21 17:31 03/14/21 18:00 03/14/21 18:01 Temperature Pulse Rate 94 H 96 H 94 H Respiratory Rate 25 H 20 30 H Blood Pressure 126/59 L 107/73 Pulse Oximetry 94 94 94 03/14/21 18:42 03/14/21 19:00 03/14/21 19:30 Temperature Pulse Rate 117 H 103 H 98 H Respiratory Rate 27 H 25 H 26 H Blood Pressure Pulse Oximetry 87 L 94 85 L 03/14/21 20:00 03/14/21 20:12 03/14/21 20:30 Temperature Pulse Rate 99 H 100 H 107 H Respiratory Rate 27 H 31 H 25 H Blood Pressure 109/64 Pulse Oximetry 92 93 94 03/14/21 20:52 Temperature Pulse Rate 93 H Respiratory Rate 20 Blood Pressure 123/64 Pulse Oximetry 94 Oxygen Delivery Method Room Air Narrative Exam Narrative: Gen: Alert, oriented, obese 80 y.o. female, chronically ill appearing HEENT: normocephalic, atraumatic, conjunctiva clear, sclera non-icteric, oral mucosa pink and moist Neck: supple, full ROM, no JVD, trachea is midline Resp: Lungs CTA, non-labored breathing Chest: Left breast resected, has erythema, and candidal appearing lesion in the underfold of the left breast CV: RRR, no murmur or rubs Abd: soft, non-tender, normoactive BTs Skin: Left arm is edematous from the axilla to the the dorsem of her left hand and fingers with the dorsum of her hand being almost translucent. Dorsum of her hand is cool Neuro: Alert and oriented X 4 w/no focal deficits. Speech clear and coherent. Extremities: NO edema of the lower extremities, moves all 4 extremities, is ambulatory, negative Jaquan?s sign Psyche: normal mood and affect. Objective ECG Impression: Electronic interpretation: Atrial fibrillation, Anteroseptal infarct , age undetermined ST & T wave abnormality, consider inferior ischemia Agree with Atrial fibrillation, patient has ischemic cardiomyopathy Labs Result Diagrams: 03/14/21 16:35 03/14/21 16:35 Labs: Laboratory Results - last 24 hr 03/14/21 03/14/21 03/14/21 16:35 16:35 16:35 WBC 7.9 RBC 3.64 L Hgb 11.9 L Hct 34.7 L MCV 95.3 MCH 32.7 MCHC 34.3 RDW 16.6 H Plt Count 296 Neut % (Auto) 77.7 H Lymph % (Auto) 9.8 L [place] % (Auto) 7.9 Eos % (Auto) 3.9 Baso % (Auto) 0.7 Neut # (Auto) 6100 Lymph # (Auto) 800 L [place] # (Auto) 600 Eos # (Auto) 300 Baso # (Auto) 100 Sodium 123 L Potassium 5.9 H Chloride 87 L Carbon Dioxide 31 BUN 37 H Creatinine 1.57 H Estimated GFR 31.7 L BUN/Creatinine Ratio 23.6 H Glucose 103 Lactate 1.1 Calcium 9.0 Total Bilirubin 0.4 AST 48 H ALT 32 Alkaline Phosphatase 129 H Total Creatine Kinase CK-MB (CK-2) CK-MB (CK-2) Rel Index Troponin I NT-Pro-B Natriuret Pep Total Protein 6.6 Albumin 3.9 Globulin 2.7 Albumin/Globulin Ratio 1.4 Lipase 128 Procalcitonin 0.07 Urine Color Urine Appearance Urine pH Ur Specific [place] Urine Protein Urine Glucose (UA) Urine Ketones Urine Occult Blood Urine Nitrate Urine Bilirubin Urine Urobilinogen Ur Leukocyte Esterase Urine RBC Urine WBC Ur Squamous Epith Cells Urine Bacteria Ur Culture Indicated? SARS-CoV-2 (PCR) 03/14/21 03/14/21 03/14/21 16:35 18:50 20:30 WBC RBC Hgb Hct MCV MCH MCHC RDW Plt Count Neut % (Auto) Lymph % (Auto) [place] % (Auto) Eos % (Auto) Baso % (Auto) Neut # (Auto) Lymph # (Auto) [place] # (Auto) Eos # (Auto) Baso # (Auto) Sodium Potassium Chloride Carbon Dioxide BUN Creatinine Estimated GFR BUN/Creatinine Ratio Glucose Lactate Calcium Total Bilirubin AST ALT Alkaline Phosphatase Total Creatine Kinase 63 CK-MB (CK-2) TNP CK-MB (CK-2) Rel Index TNP Troponin I < 0.012 NT-Pro-B Natriuret Pep 4030 H Total Protein Albumin Globulin Albumin/Globulin Ratio Lipase Procalcitonin Urine Color Yellow Urine Appearance Clear Urine pH 5.5 Ur Specific [place] 1.015 Urine Protein Negative Urine Glucose (UA) Negative Urine Ketones Negative Urine Occult Blood Negative Urine Nitrate Negative Urine Bilirubin Negative Urine Urobilinogen 0.2 Ur Leukocyte Esterase 1+ H Urine RBC None seen Urine WBC 1-5/hpf Ur Squamous Epith Cells 1-5 /hpf Urine Bacteria Occasional (0-1) Ur Culture Indicated? Specimen cultured SARS-CoV-2 (PCR) Negative Assessment & Plan Assessment & Plan narrative: Deborah Samuels is admitted as an inpatient for further evaluation of a left breast cellulitis vs mass, and congestive heart failure exacerbation 1. Left breast cellulitis vs mass, acute and present on admission * Dr. Pelaez has been notified about the patient's admission and agrees to consult * Start IV ampicillin sulbactam 3 grams qid * Blood cultures were drawn in the ED 2. Acute on chronic congestive heart failure exacerbation likely secondary to ischemic cardiomyopathy, present on admission * ProBNP was over 4000 * She is on a fluid restricted diet of 1200 mL per day with regular salt content due to current hyponatremia * She is ordered for a limited echocardiogram however her last 1 was done in late November at [facility], repeat can be addressed in the morning after consultation with her dining server * She is ordered for IV Lasix 40 mg in the morning and received 40 mg of IV Lasix in the emergency department. * She is rate controlled with metoprolol succinate 25 mg p.o. b.i.d. and will continue this. 3. Coronary artery disease, chronic and present on admission * During her last cardiac catheterization it was recommended that she undergo a high risk PCI. This was discussed with the patient and she was not aware of the need to have this done. She stated that she was turned down for any kind of surgeries that involved general anesthesia due to her heart. When she underwent left and right heart cardiac catheterizations in November, she was under light sedation. * Continue home dose of aspirin 81 mg p.o. daily and continue lisinopril 5 mg p.o. daily 5. Tobacco dependence, chronic and present on admission * She has been encouraged to quit smoking. 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 Edema of the left upper extremity and hand * She will be encouraged to elevate her left extremity and hand * Consider wound care consultation as this is likely lymphedema not cellulitis and educating her on appropriate compression. 6. History of Hodkin's lymphoma * General surgery in his last note indicated concern for recurrence of lymphoma and recommend consultation with patient's oncologist regarding this. 7. Advanced care planning * Due to the patient's multiple medical problems and contraindications to surgical intervention I asked the patient whether not she was interested in either palliative care or hospice. I explained to her the palliative care might be able to help her out with her symptoms and extend the quality of her life. She has declined for now stating that she has a lot of complicating issues in her life. VTE prophylaxis: Wells risk score: 2.5 she will continue her normal anticoagulation with apixaban 5 mg p.o. b.i.d. Consults: Dr. Pelaez, general surgery consult and involvement is appreciated. Patient is admitted under inpatient status with expected length of stay greater than 2 midnights due to severity of presenting symptoms, risk of adverse event, and complexity of treatment plan. FEN: IV saline lock, regular diet w/a fluid restriction, CMP and magnesium in the am. Dispo: Unknown at this time Code Status: Full Code as discussed with patient Sinan Samuels and POA COVID-19 COVID-19 status: Negative Result date/Date tested (Pos, Neg/Pending): 03/14/21 Scores CHADS-VASc Congestive heart failure: yes Hypertension: yes Age 75 years or older: yes Diabetes mellitus: no Stroke, TIA, or TE: yes Vascular disease: yes Age 65 to 74 years: no Sex category (female): Female CHADS-VASc Score: 8 Wells' Criteria for PE Clinical signs and symptoms of DVT: No PE is #1 Dx or equally likely: No Heart rate > 100: No Immobilization at least 3 days or surg in previous 4 weeks: Yes History of PE or DVT: No Hemoptysis: No Malignancy w/Treatment within 6 months or palliative: Yes Wells' PE Score total: 2.5 Quality MIPS - Admit I confirm the patient?s Advance Care Plan is present, Code status is documented, Surrogate decision maker is in patient?s record [If Yes, STOP here]: Yes MIPS - DC The patient has current or prior documentation of left ventricular ejection fraction (LVEF) less than 40%, or moderate or severely depressed left ventricular systolic function.: Yes A. The patient was prescribed or already taking an Angiotensin-Converting Enzyme (CHRISSY) Inhibitor, or Angiotensin Receptor Brigida (ARB).: Yes B. The patient was prescribed or already taking a beta-brigida. [If Yes to Both A & B, STOP here]: Yes
[2021-03-14] MEDS: IPRATROPIUM 0.5 MG/2.5 ML NEB INH (22:36)
[2021-03-15] VITALS (20 sets, daily range): BP systolic 86–135; BP diastolic 42–94; PULSE 87–106; RESP 16–28; TEMP 35.7–36.2; O2SAT 88–99
--- NOTE | 2021-03-15 | DI.ECHO.S_ITS ---
[facility] +---------+ : : [address] : : : : [place], [place] : : : : [id number] : : : : Phone: [phone] Echocardiogram Report + + :Name: ANTONIETTA SANTIAGO Study Date: 03/15/2021 Height: 68 in : :[facility] ReadingLocation: Weight: 200 lb: : Gender: Female BSA: 2.0 m2 : :: 1940 Age: 80 yrs BP: 97/90 mmHg: :Reason For Study: ELEVATED PRO-BNP : :Ordering Physician: GARRET FIELDS : :[employer] ENGINE[employer] Performed By: Cherie Solo : :Referring: GARRET FIELDS : + + Interpretation Summary The left ventricle is normal in size and wall thickness. Left ventricular ejection fraction is estimated to be 50%. Left ventricular systolic function has slightly improved compared to the previous exam. 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 The right ventricle is normal size. Right ventricular function cannot be assessed due to poor image quality. Procedure: The study quality was technically adequate. A two-dimensional transthoracic echocardiogram with color flow and Doppler was performed in limited views only to assess ejection fraction.. Comparison is made with the echocardiogram of 11/30/2020. The patient was in sinus rhythm with heart rates between 82-106 bpm during the exam. Left Ventricle: The left ventricle is normal in size and wall thickness. Left ventricular ejection fraction is estimated to be 50%. Left ventricular systolic function has slightly improved compared to the previous exam. 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 Right Ventricle: The right ventricle is normal size. Right ventricular function cannot be assessed due to poor image quality. Atria: The left atrium is mildly dilated. Right atrial size is normal. Pericardium/ Pleura There is no pericardial effusion. MMode/2D Measurements & Calculations LVIDd: 5.8 cm LA A2 area: 23.1 cm2 LVIDs: 3.4 cm LA A4 area: 26.0 cm2 FS: 42.4 % LA length (vol): 6.2 cm IVSd: 0.85 cm LA vol: 81.8 ml LVPWd: 0.82 cm LA vol index: 40.0 ml/m2 LV capellan. diameter/BSA (cm/m^2): 2.9 LV sys. diameter/BSA (cm/m^2): 1.6 RA long axis: 5.9 cm RVD1 (basal): 3.1 cm RA area: 21.5 cm2 TAPSE: 1.5 cm RA vol: 66.6 ml RA : 32.6 ml/m2 Reading Physician:05:44 PM
[2021-03-15] MEDS: ATORVASTATIN 20 MG TABLET 40 MG PO ×2 (00:15→21:20)
[2021-03-15] MEDS: NYSTATIN POWDER 15GM 1 APPLIC TOP (00:15)
[2021-03-15] MEDS: TRAMADOL 50 MG TABLET PO ×3 (00:16→21:20)
[2021-03-15] MEDS: APIXABAN 5 MG TABLET PO ×2 (00:16→08:21)
[2021-03-15] MEDS: AMPICILLIN/SULBACTAM 3 GM 3 GM in SODIUM CHLORIDE 0.9% 100 ML IV ×5 (00:41→23:56)
[2021-03-15] MEDS: LEVOTHYROXINE 150 MCG TABLET PO (05:21)
[2021-03-15 05:57] LABS: Add Manual Diff / Slide Review NO; Basophils Absolute Auto 0 /uL (0-100); Basophils Percent Auto 0.6 % (0-2); Eosinophils Absolute Auto 400 /uL (0-450); Eosinophils Percent Auto 5.9 % (2-4); Hematocrit 32.3 % (36-46); Lymphocytes Absolute Auto 500 /uL (1100-4500); Lymphocytes Percent Auto 7.3 % (25-40); Mean Corpuscular Hemoglobin 32.5 PG (26-34); Mean Corpuscular Volume 95.7 fL (80-100); Monocytes Absolute Auto 600 /uL (0-900); Monocytes Percent Auto 8.8 % (3-14); Neutrophils Absolute Auto 5300 /uL (1500-7000); Neutrophils Percent Auto 77.4 % (50-75); Platelet Count 247 X10^3/uL (150-400); Red Blood Cell Count 3.38 X10^6/uL (4.0-5.2); Red Cell Distribution Width 16.9 % (11.6-14.8); White Blood Cell Count 6.9 X10^3/uL (4.5-11.0)
[2021-03-15 06:03] LABS: Alanine Aminotransferase 29 IU/L (<35); Albumin 3.3 g/dL (3.5-5.0); Albumin Globulin Ratio 1.4 (1.0-2.8); Alkaline Phosphatase 104 U/L (38-126); Aspartate Aminotransferase 43 IU/L (14-36); BUN Creatinine Ratio 23.4 (6-22); Bilirubin Total 0.4 mg/dL (0.2-1.3); Bilirubin Unconjugated 0.3 mg/dL (0.0-1.1); Blood Urea Nitrogen 41 mg/dL (7-17); Calcium 8.5 mg/dL (8.4-10.2); Carbon Dioxide 26 mmol/L (22-32); Chloride 91 mmol/L (98-107); Globulin 2.4 g/dL (1.7-4.1); Glucose 95 mg/dL (80-110); HEMOLYSIS < 15 (0-50); Magnesium 1.9 mg/dL (1.6-2.3); Sodium 123 mmol/L (137-145); Total Protein 5.7 g/dL (6.3-8.2)
[2021-03-15] MEDS: ISOSORBIDE MONONITRATE ER 30 MG TABLET 60 MG PO (06:24)
[2021-03-15] MEDS: IPRATROPIUM 0.5 MG/2.5 ML NEB INH ×3 (06:33→20:01)
[2021-03-15 06:42] LABS: Potassium 5.5 mmol/L (3.4-5.1)
[2021-03-15] MEDS: ASPIRIN EC 81 MG TABLET PO (08:18)
[2021-03-15] MEDS: lisinopriL 5 MG TABLET PO (08:18)
[2021-03-15] MEDS: METOPROLOL ER 25 MG TABLET PO (08:21)
[2021-03-15] MEDS: FUROSEMIDE 40 MG/4 ML VIAL IV (08:21)
[2021-03-15] MEDS: NICOTINE 14 PATCH 14 MG TOP (08:24)
--- NOTE | 2021-03-15 09:03 | DI.US.S_ITS ---
PROCEDURE: US BREAST LT LIMITED COMPARISON: [facility], BREAST LT LIMITED, 02/28/2021, 11:36. INDICATIONS: CELLULITIS; MASTECTOMY 2 YEARS AGO FINDINGS: There is a 5.8 cm x 1.9 cm irregular fluid collection in the left breast at 1 o'clock posterior depth underneath chest wall muscle. This correlates as palpated and with area of redness. Color flow imaging demonstrates that there is an adjacent vascularity. There also are multiple irregular enlarged lymph nodes in the left axillary tail. These irregular enlarged lymph nodes are hypoechoic with no fatty hilum. IMPRESSION: The 5.8 cm x 1.9 cm irregular fluid collection in the left breast at 1 o'clock posterior depth has a differential diagnosis of an abscess, hematoma, or a seroma, less likely solid mass and remains indeterminate. The multiple irregular enlarged lymph nodes in the left axillary tail are also indeterminate, possibly reactive or reflective of venkatesh metastasis or primary malignancy. Chest CT with contrast is recommended for further evaluation of location and extent of potential fluid collection for drainage and to further assess for metastatic disease. Dictated by: Megha Ramon M.D. on 03/15/2021 at 13:09 Approved by: Megha Ramon M.D. on 03/15/2021 at 13:24
--- NOTE | 2021-03-15 10:47 | DI.US.S_ITS ---
PROCEDURE: US RENAL COMPLETE INDICATIONS: ALESIA TECHNIQUE: Real-time scanning was performed of the kidneys and bladder, with image documentation. COMPARISON: [facility], CT, CHEST/ABD/PEL WITH CONTRAST, 05/01/2016, 8:21. FINDINGS: Kidneys: Kidneys are normal in size. Right kidney measures 9.3 cm long; left kidney measures 10.6 cm long. Right renal cortical thickness is 1.1 cm; left renal cortical thickness is 1.4 cm. Renal cortical echotexture is within normal limits. No hydronephrosis or nephrolithiasis seen. No suspicious solid mass lesions. Bladder: Decompressed limiting evaluation. IMPRESSION: No hydronephrosis. Dictated by: Hermes Paredes M.D. on 03/15/2021 at 13:03 Approved by: Hermes Paredes M.D. on 03/15/2021 at 13:05
[2021-03-15] MEDS: DEXTROSE 50 % IN WATER 25 GM/50 ML SYRINGE IV (11:18)
[2021-03-15] MEDS: INSULIN REGULAR 100 UNIT/ML 3 ML VIAL 10 UNIT IV (11:18)
[2021-03-15] MEDS: ALBUTEROL 2.5 MG/3 ML NEB (ADULT) INH (13:20)
--- NOTE | 2021-03-15 13:33 | DI.CT.S_ITS ---
PROCEDURE: CT CHEST WO CON INDICATIONS: L chest fluid collection and adenopathy TECHNIQUE: Noncontrast 5 mm thick sections acquired from the pulmonary apices to the posterior costophrenic angles. 1 mm lung window, 5 mm thick coronal and sagittal and 7 mm axial MIP reformats were then acquired. For radiation dose reduction, the following was used: automated exposure control, adjustment of mA and/or kV according to patient size. COMPARISON: None. FINDINGS: Image quality: Diminished by absence of intravenous contrast. Lungs and pleura: No acute air space opacities and the absence of intravenous contrast disallows clear differentiation between the atelectatic lung and pleural fluid. No pleural effusions or pneumothorax. Central and peripheral airways are patent and normal in caliber. Mediastinum: Heart size is normal. No pericardial effusion. No mediastinal adenopathy by size criteria. Thoracic aorta and central pulmonary arteries are normal in size. Esophagus is normal in caliber. No hiatal hernia. Bones and chest wall: No suspicious bony lesions. No vertebral body compression fractures. No axillary or supraclavicular adenopathy by size criteria. Thyroid gland there is what appears to be a spiculated mass at the lower posterior left breast, and cutaneous irregularity and thickening suggestive of potential inflammatory breast carcinoma. Edema and adenopathy extends from the left breast cephalad into the left axilla. Left supraclavicular adenopathy also appears present. Abdomen: Visualized upper abdominal solid organs and bowel loops appear normal in the absence of contrast. IMPRESSION: Quality of visualization is significantly limited by the absence of intravenous contrast. What appears to be left breast carcinoma with cutaneous thickening is present, and relatively prominent left axillary adenopathy and partially visualized left supraclavicular adenopathy. Left-sided pleural effusion and atelectasis/pneumonia appears present, with poor discrimination of the degree of effusion due to absence of intravenous contrast. Ultrasound assessment of the left hemithorax may be warranted to determine quantity of effusion present. Dictated by: Himanshu Austin M.D. on 03/15/2021 at 15:08 Approved by: Himanshu Austin M.D. on 03/15/2021 at 15:13
[2021-03-15] MEDS: AZITHROMYCIN 500 MG in DEXTROSE 5% IN WATER 250 ML IV (13:42)
--- NOTE | 2021-03-15 14:29 | PC.NURSE ---
RT called for EKG.
--- NOTE | 2021-03-15 14:51 | PC.NURSE ---
Staff assist called for patient as her BP decreased at 1430. Pt complained of pain in the RUQ/chest region radiating to back. Bolus IV fluids started, BG check of 142. Patient currently on 2L NC of O2, saturation is 98%. Prior to staff assist being called, vitals were as followed at 1429: BP 76/44, HR 94 O2 sat 98% on RA. BP dropped to 59/32 at 1432. EKG completed, no acute changes. 1447 Vitals: BP 86/44, 97% 2L NC, 85 HR. RN at bedside of patient. Dr. Walsh updated on patients condition in room at 1456. Patient still complaints of chest pain. Vitals at 1458: BP of 117/47, HR 85, O2 98% 2L NC, 24 RR. Bolus still infusing.
--- NOTE | 2021-03-15 15:35 | PC.NURSE ---
Blood sugar was 142 @ 1430
[2021-03-15 15:47] LABS: BUN Creatinine Ratio 22.6 (6-22); Blood Urea Nitrogen 42 mg/dL (7-17); Calcium 8.7 mg/dL (8.4-10.2); Carbon Dioxide 26 mmol/L (22-32); Chloride 91 mmol/L (98-107); Estimated Glomerular Filt Rate 26.1 mL/min (>60); Glucose 94 mg/dL (80-110); HEMOLYSIS < 15 (0-50); Potassium 5.3 mmol/L (3.4-5.1); Sodium 124 mmol/L (137-145)
[2021-03-15 16:19] LABS: Creatinine Urine Random 79.3 mg/dL; Sodium Urine Random 74 mmol/L (30-90)
[2021-03-15] MEDS: LIDOCAINE PATCH 1 EACH ADH..PATCH TOP (16:31)
--- NOTE | 2021-03-15 16:32 | PM.CN ---
History of Present Illness Consult details Date Patient Seen: 03/15/21 Chief complaint: Cellulitis of the left breast, CHF exacerbation Narrative: 80F history of lymphoma and breast cancer admitted to the hospital for congestive heart failure and cellulitis. -Hodgkin's lymphoma completed chemotherapy 2010. -Left breast cancer intraductal carcinoma, ER positive, SC positive, HER2 negative status post bilateral mastectomies 2015. One sentinel lymph node was identified contained micro metastasis. Did not receive radiation or adjuvant chemotherapy. For the past several months she has complaint of left breast pain in the upper outer quadrant. During the past one month she developed LUE cellulitis which did not improve with PO abx and was admitted to the hospital. Breast ultrasound demonstrates 03/15/21 IMPRESSION: The 5.8 cm x 1.9 cm irregular fluid collection in the left breast at 1 o'clock posterior depth has a differential diagnosis of an abscess, hematoma, or a seroma, less likely solid mass and remains indeterminate. The multiple irregular enlarged lymph nodes in the left axillary tail are also indeterminate, possibly reactive or reflective of venkatesh metastasis or primary malignancy. CT Chest 03/15/21 What appears to be left breast carcinoma with cutaneous thickening is present, and relatively prominent left axillary adenopathy and partially visualized left supraclavicular adenopathy. Meds Home Medications and Allergies Home Medications Medication Instructions Recorded Confirmed Type CA PANTOTHENATE/FOLIC ACID/VIT 1 tab PO QDAY #0 12/25/12 03/14/21 History (MULTIVITAMIN) CHOLECALCIFEROL (VITAMIN D) 2,000 iu PO Q DAY #0 12/25/12 03/14/21 History Lactobacillus acidophilus 1 tab PO QDAY #0 08/03/16 03/14/21 History zoster vaccine live (PF) 19,400 0.5 ml SQ STAT #1 ml 11/09/16 03/14/21 Rx unit/0.65 mL subcutaneous suspension (Zostavax (PF)) ciclopirox 8 % topical solution 3.3 ml TP QDAY #1 bot 05/22/17 03/14/21 Rx (Ciclodan) albuterol sulfate 90 mcg/actuation 2 puff INH HSP PRN #0 08/20/17 03/14/21 History aerosol inhaler (Proventil HFA) levothyroxine 175 mcg tablet 0.15 mg PO QAM 08/07/18 03/14/21 History albuterol sulfate 90 mcg/actuation 1 puff INHALATION Q4-6H PRN 02/03/19 03/14/21 History aerosol inhaler (ProAir HFA) apixaban 5 mg tablet 5 mg PO BID 02/03/19 03/14/21 History aspirin 81 mg chewable tablet 81 mg PO DAILY 02/03/19 03/14/21 History atorvastatin 40 mg tablet 40 mg PO BEDTIME 02/03/19 03/14/21 History furosemide 40 mg tablet 40 mg PO DAILY 02/03/19 03/14/21 History lisinopril 5 mg tablet 5 mg PO DAILY 02/03/19 03/14/21 History metoprolol succinate 25 mg capsule 25 mg PO BID 02/03/19 03/14/21 History sprinkle, ext. release 24 hr multivitamin 1 cap PO DAILY 02/03/19 03/14/21 History nicotine 21 mg/24 hr daily 1 patch TRANSDERMAL Q24H 02/03/19 03/15/21 History transdermal patch (Nicoderm CQ) spironolactone 25 mg tablet 12.5 mg PO DAILY 09/10/19 03/14/21 History tiotropium bromide 18 mcg capsule 18 mcg INHALATION QAM 02/18/20 03/15/21 History with inhalation device (Spiriva with HandiHaler) exemestane 25 mg tablet (Aromasin) 25 mg PO QDAY #30 tab 01/30/21 03/14/21 Rx cephalexin 500 mg capsule 500 mg PO QID #40 cap 03/03/21 03/14/21 Rx sulfamethoxazole 800 1 tab PO Q12H #20 tab 03/10/21 03/14/21 Rx mg-trimethoprim 160 mg tablet (Bactrim DS) nitroglycerin 0.4 mg sublingual 0.4 mg SUBLINGUAL PRN PRN 03/15/21 03/15/21 History tablet (Nitrostat) Allergies Allergy/AdvReac Type Severity Reaction Status Date / Time acetaminophen [From TYLENOL] Allergy Severe RASH, Unverified 12/18/17 12:40 ITCHING cephalexin Allergy Intermediate Severe Verified 03/10/21 14:38 itching cortisone [CORTISONE] Allergy Intermediate HIVES Unverified 12/18/17 12:40 latex [LATEX] Allergy Mild WELTS Unverified 12/18/17 12:40 desoximetasone Allergy Unknown Rash Verified 08/07/18 14:02 omeprazole [From PRILOSEC] Allergy Unknown RASH Unverified 12/18/17 12:40 triamcinolone Allergy Unknown Rash Verified 08/07/18 14:03 Exam Vital Signs (past 8 hours): - 03/15/21 08:53 03/15/21 09:00 03/15/21 09:06 Temperature 97 F L Pulse Rate 87 103 H Respiratory Rate 18 Blood Pressure 131/94 H 86/50 L Pulse Oximetry 94 92 03/15/21 09:09 03/15/21 12:00 03/15/21 13:20 Temperature 96.3 F L Pulse Rate 103 H 101 H Respiratory Rate 18 16 Blood Pressure 135/60 100/55 L Pulse Oximetry 94 92 03/15/21 14:29 03/15/21 15:10 03/15/21 15:35 Temperature 97.0 F L Pulse Rate 101 H 93 H 99 H Respiratory Rate 18 Blood Pressure 92/49 L 96/54 L 93/43 L Pulse Oximetry 95 97 98 Oxygen Delivery Method Room Air Oxygen Flow Rate 0 Narrative Exam Narrative: GENERAL- elderly female, no acute distress HEENT-no scleral icterus, hearing intact NECK-no JVD, trachea midline CVS- regular rate, pittingperipheral edema RESP-unlabored respiratory effort, no audible wheezing GI-soft, nontender nondistended MSK-no cyanosis or clubbing, extremities without deformity SKIN- left upper extremity with lymphedema. Left axillary lymphadenopathy. Edema of left chest wall most prominent at the site of prior mastectomy NEURO-alert and oriented, no focal deficits PYSCH-Appropriate mood and affect Objective Labs Result Diagrams: 03/15/21 05:45 03/15/21 13:28 Labs: Laboratory Results - last 24 hr 03/14/21 03/14/21 03/14/21 16:35 16:35 16:35 WBC 7.9 RBC 3.64 L Hgb 11.9 L Hct 34.7 L MCV 95.3 MCH 32.7 MCHC 34.3 RDW 16.6 H Plt Count 296 Neut % (Auto) 77.7 H Lymph % (Auto) 9.8 L [place] % (Auto) 7.9 Eos % (Auto) 3.9 Baso % (Auto) 0.7 Neut # (Auto) 6100 Lymph # (Auto) 800 L [place] # (Auto) 600 Eos # (Auto) 300 Baso # (Auto) 100 Sodium 123 L Potassium 5.9 H Chloride 87 L Carbon Dioxide 31 BUN 37 H Creatinine 1.57 H Estimated GFR 31.7 L BUN/Creatinine Ratio 23.6 H Glucose 103 Lactate 1.1 Calcium 9.0 Magnesium Total Bilirubin 0.4 Conjugated Bilirubin Unconjugated Bilirubin AST 48 H ALT 32 Alkaline Phosphatase 129 H Total Creatine Kinase CK-MB (CK-2) CK-MB (CK-2) Rel Index Troponin I NT-Pro-B Natriuret Pep Total Protein 6.6 Albumin 3.9 Globulin 2.7 Albumin/Globulin Ratio 1.4 Lipase 128 Procalcitonin 0.07 Urine Color Urine Appearance Urine pH Ur Specific [place] Urine Protein Urine Glucose (UA) Urine Ketones Urine Occult Blood Urine Nitrate Urine Bilirubin Urine Urobilinogen Ur Leukocyte Esterase Urine RBC Urine WBC Ur Squamous Epith Cells Urine Bacteria Ur Culture Indicated? Ur Random Sodium Urine Creatinine SARS-CoV-2 (PCR) 03/14/21 03/14/21 03/14/21 16:35 16:35 18:50 WBC RBC Hgb Hct MCV MCH MCHC RDW Plt Count Neut % (Auto) Lymph % (Auto) [place] % (Auto) Eos % (Auto) Baso % (Auto) Neut # (Auto) Lymph # (Auto) [place] # (Auto) Eos # (Auto) Baso # (Auto) Sodium Potassium Chloride Carbon Dioxide BUN Creatinine Estimated GFR BUN/Creatinine Ratio Glucose Lactate Calcium Magnesium 2.1 Total Bilirubin Conjugated Bilirubin Unconjugated Bilirubin AST ALT Alkaline Phosphatase Total Creatine Kinase 63 CK-MB (CK-2) TNP CK-MB (CK-2) Rel Index TNP Troponin I < 0.012 NT-Pro-B Natriuret Pep 4030 H Total Protein Albumin Globulin Albumin/Globulin Ratio Lipase Procalcitonin Urine Color Urine Appearance Urine pH Ur Specific [place] Urine Protein Urine Glucose (UA) Urine Ketones Urine Occult Blood Urine Nitrate Urine Bilirubin Urine Urobilinogen Ur Leukocyte Esterase Urine RBC Urine WBC Ur Squamous Epith Cells Urine Bacteria Ur Culture Indicated? Ur Random Sodium Urine Creatinine SARS-CoV-2 (PCR) Negative 03/14/21 03/14/21 03/15/21 20:30 20:30 05:45 WBC 6.9 RBC 3.38 L Hgb 11.0 L Hct 32.3 L MCV 95.7 MCH 32.5 MCHC 34.0 RDW 16.9 H Plt Count 247 Neut % (Auto) 77.4 H Lymph % (Auto) 7.3 L [place] % (Auto) 8.8 Eos % (Auto) 5.9 H Baso % (Auto) 0.6 Neut # (Auto) 5300 Lymph # (Auto) 500 L [place] # (Auto) 600 Eos # (Auto) 400 Baso # (Auto) 0 Sodium Potassium Chloride Carbon Dioxide BUN Creatinine Estimated GFR BUN/Creatinine Ratio Glucose Lactate Calcium Magnesium Total Bilirubin Conjugated Bilirubin Unconjugated Bilirubin AST ALT Alkaline Phosphatase Total Creatine Kinase CK-MB (CK-2) CK-MB (CK-2) Rel Index Troponin I NT-Pro-B Natriuret Pep Total Protein Albumin Globulin Albumin/Globulin Ratio Lipase Procalcitonin Urine Color Yellow Urine Appearance Clear Urine pH 5.5 Ur Specific [place] 1.015 Urine Protein Negative Urine Glucose (UA) Negative Urine Ketones Negative Urine Occult Blood Negative Urine Nitrate Negative Urine Bilirubin Negative Urine Urobilinogen 0.2 Ur Leukocyte Esterase 1+ H Urine RBC None seen Urine WBC 1-5/hpf Ur Squamous Epith Cells 1-5 /hpf Urine Bacteria Occasional (0-1) Ur Culture Indicated? Specimen cultured Ur Random Sodium 74 Urine Creatinine 79.3 SARS-CoV-2 (PCR) 03/15/21 03/15/21 05:45 13:28 WBC RBC Hgb Hct MCV MCH MCHC RDW Plt Count Neut % (Auto) Lymph % (Auto) [place] % (Auto) Eos % (Auto) Baso % (Auto) Neut # (Auto) Lymph # (Auto) [place] # (Auto) Eos # (Auto) Baso # (Auto) Sodium 123 L 124 L Potassium 5.5 H 5.3 H Chloride 91 L 91 L Carbon Dioxide 26 26 BUN 41 H 42 H Creatinine 1.75 H 1.86 H Estimated GFR 28.0 L 26.1 L BUN/Creatinine Ratio 23.4 H 22.6 H Glucose 95 94 Lactate Calcium 8.5 8.7 Magnesium 1.9 Total Bilirubin 0.4 Conjugated Bilirubin 0.0 Unconjugated Bilirubin 0.3 AST 43 H ALT 29 Alkaline Phosphatase 104 Total Creatine Kinase CK-MB (CK-2) CK-MB (CK-2) Rel Index Troponin I NT-Pro-B Natriuret Pep Total Protein 5.7 L Albumin 3.3 L Globulin 2.4 Albumin/Globulin Ratio 1.4 Lipase Procalcitonin Urine Color Urine Appearance Urine pH Ur Specific [place] Urine Protein Urine Glucose (UA) Urine Ketones Urine Occult Blood Urine Nitrate Urine Bilirubin Urine Urobilinogen Ur Leukocyte Esterase Urine RBC Urine WBC Ur Squamous Epith Cells Urine Bacteria Ur Culture Indicated? Ur Random Sodium Urine Creatinine SARS-CoV-2 (PCR) Assessment & Plan Assessment and plan (1) Cellulitis of left breast: Status: Acute Assessment & Plan narrative: 80-year-old female history of lymphoma and left breast cancer admitted to the hospital for congestive heart failure and cellulitis of the left upper extremity. She has left axillary lymphadenopathy and a left chest wall fluid collection. Cellulitis is improving with IV antibiotic therapy. The axillary lymphadenopathy is concerning for either lymphoma reoccurence vs breast cancer reoccurence. Ideally would proceed with an exicsional lymph node biopsy however she is at high surgical risk given her CHF and ischemic cardiomyopathy. She may be ammenable to procedure under sedation with local anestheic if not core needle biopsy would be next best alternative. -Hold Aspirin and Eliquis -Review echo and discussion with medicine. If reasonable proceed with excisional biopsy vs core needle biospy and drainage of the fluid collection.
[2021-03-15 17:49] LABS: Hematocrit 32.7 % (36-46); Hemoglobin 11.1 g/dL (12.0-16.0); Mean Corpuscular Hemoglobin 32.7 PG (26-34); Mean Corpuscular Volume 96.2 fL (80-100); Platelet Count 226 X10^3/uL (150-400); Red Cell Distribution Width 16.9 % (11.6-14.8); White Blood Cell Count 5.7 X10^3/uL (4.5-11.0)
[2021-03-15 18:16] LABS: Blood Urea Nitrogen 44 mg/dL (7-17); Calcium 8.2 mg/dL (8.4-10.2); Carbon Dioxide 24 mmol/L (22-32); Chloride 93 mmol/L (98-107); Estimated Glomerular Filt Rate 26.6 mL/min (>60); Glucose 103 mg/dL (80-110); HEMOLYSIS 22 (0-50); Potassium 5.1 mmol/L (3.4-5.1); Sodium 124 mmol/L (137-145)
[2021-03-15 18:28] LABS: Troponin I 0.013 ng/mL (0.01-0.034)
--- NOTE | 2021-03-15 19:05 | DI.NM.S_ITS ---
PROCEDURE: NM PUL VENT AND PERFUSION RADIOPHARMACEUTICAL: 36.9 mCi Tc-99m DTPA aerosol by inhalation and 10.0 mCi Tc-99m MAA intravenously. INDICATIONS: r/o PE TECHNIQUE: Ventilation images were obtained first with Tc-99m DTPA aerosol. Subsequently, perfusion images were acquired after intravenous injection of Tc-99m MAA. Anterior, posterior, PAVON, SAUDI ARABIAN, RPO, LPO, left and right lateral views were obtained. COMPARISON: [facility], CT, CT CHEST WO [facility], 03/15/2021, 13:50. FINDINGS: The study is limited by apparent COPD of the patient and large body habitus. Note is made of central airway deposition ventilatory isotope agent. This results in heterogeneity of the ventilation imaging and there a expected heterogeneity of the perfusion imaging in this clinical circumstance. This results in an intermediate probability of pulmonary embolus. IMPRESSION: Recent CT scanning, large body habitus, COPD with centrilobular emphysema, and left lung base alveolar consolidation and pleural effusion. These factors result in heterogeneity of the ventilation and perfusion imaging to the degree that intermediate probability of pulmonary embolus is present. If possible, CT pulmonary angiogram is recommended. Dictated by: Himanshu Austin M.D. on 03/16/2021 at 16:12 Approved by: Himanshu Austin M.D. on 03/16/2021 at 16:15
--- NOTE | 2021-03-15 19:50 | P.PN_ITS ---
Subjective Subjective Date Patient Seen: 03/15/21 Time Patient Seen: 08:00 Interval history: Please note patient was seen twice, once during a rapid response. This morning she said that she had felt well. She was having no pain. Her shortness of breath was improving. Her swelling in her arm had improved. This afternoon she was noted to suddenly be dizzy. Blood pressure was checked which was low initially in the systolic of 70s, then dropped to systolic of 50s. She was having right sided lower chest pain. She had no shortness of breath. She had EKG which showed atrial fibrillation with no acute ischemia. She had IV bolus of fluids and improved her blood pressure to the 110s. Her metoprolol, imdur and lasix were stopped. She had stat labs ordered with cbc, bmp, and troponin. Exam Vital Signs (past 8 hours): - 03/15/21 12:00 03/15/21 13:20 03/15/21 14:29 Temperature 96.3 F L Pulse Rate 103 H 101 H 101 H Respiratory Rate 18 16 Blood Pressure 100/55 L 92/49 L Pulse Oximetry 94 92 95 03/15/21 15:10 03/15/21 15:35 03/15/21 16:54 Temperature 97.0 F L Pulse Rate 93 H 99 H 94 H Respiratory Rate 18 18 Blood Pressure 96/54 L 93/43 L 92/52 L Pulse Oximetry 97 98 97 03/15/21 19:28 Temperature 96.8 F L Pulse Rate 95 H Respiratory Rate 18 Blood Pressure 111/59 L Pulse Oximetry 98 Oxygen Delivery Method Room Air Oxygen Flow Rate 2 Narrative Exam Narrative: GENERAL- no acute distress PULM: lungs clear bilaterally CV: Left breast resected, has erythema, and intertrigo under breast folds CV: regular rate and rhythm with no murmurs Abd: soft, non-tender, normal bowel sounds Skin: Left arm is edematous from the axilla to the the dorsem of her left hand and fingers Objective Labs Result Diagrams: 03/15/21 17:42 03/15/21 17:42 Labs: Laboratory Results - last 24 hr 03/14/21 03/14/21 03/14/21 16:35 18:50 20:30 WBC RBC Hgb Hct MCV MCH MCHC RDW Plt Count Neut % (Auto) Lymph % (Auto) [place] % (Auto) Eos % (Auto) Baso % (Auto) Neut # (Auto) Lymph # (Auto) [place] # (Auto) Eos # (Auto) Baso # (Auto) Sodium Potassium Chloride Carbon Dioxide BUN Creatinine Estimated GFR BUN/Creatinine Ratio Glucose Calcium Magnesium 2.1 Total Bilirubin Conjugated Bilirubin Unconjugated Bilirubin AST ALT Alkaline Phosphatase Troponin I Total Protein Albumin Globulin Albumin/Globulin Ratio Urine Color Yellow Urine Appearance Clear Urine pH 5.5 Ur Specific [place] 1.015 Urine Protein Negative Urine Glucose (UA) Negative Urine Ketones Negative Urine Occult Blood Negative Urine Nitrate Negative Urine Bilirubin Negative Urine Urobilinogen 0.2 Ur Leukocyte Esterase 1+ H Urine RBC None seen Urine WBC 1-5/hpf Ur Squamous Epith Cells 1-5 /hpf Urine Bacteria Occasional (0-1) Ur Culture Indicated? Specimen cultured Ur Random Sodium Urine Creatinine SARS-CoV-2 (PCR) Negative 03/14/21 03/15/21 03/15/21 20:30 05:45 05:45 WBC 6.9 RBC 3.38 L Hgb 11.0 L Hct 32.3 L MCV 95.7 MCH 32.5 MCHC 34.0 RDW 16.9 H Plt Count 247 Neut % (Auto) 77.4 H Lymph % (Auto) 7.3 L [place] % (Auto) 8.8 Eos % (Auto) 5.9 H Baso % (Auto) 0.6 Neut # (Auto) 5300 Lymph # (Auto) 500 L [place] # (Auto) 600 Eos # (Auto) 400 Baso # (Auto) 0 Sodium 123 L Potassium 5.5 H Chloride 91 L Carbon Dioxide 26 BUN 41 H Creatinine 1.75 H Estimated GFR 28.0 L BUN/Creatinine Ratio 23.4 H Glucose 95 Calcium 8.5 Magnesium 1.9 Total Bilirubin 0.4 Conjugated Bilirubin 0.0 Unconjugated Bilirubin 0.3 AST 43 H ALT 29 Alkaline Phosphatase 104 Troponin I Total Protein 5.7 L Albumin 3.3 L Globulin 2.4 Albumin/Globulin Ratio 1.4 Urine Color Urine Appearance Urine pH Ur Specific [place] Urine Protein Urine Glucose (UA) Urine Ketones Urine Occult Blood Urine Nitrate Urine Bilirubin Urine Urobilinogen Ur Leukocyte Esterase Urine RBC Urine WBC Ur Squamous Epith Cells Urine Bacteria Ur Culture Indicated? Ur Random Sodium 74 Urine Creatinine 79.3 SARS-CoV-2 (PCR) 03/15/21 03/15/21 03/15/21 13:28 17:42 17:42 WBC 5.7 RBC 3.40 L Hgb 11.1 L Hct 32.7 L MCV 96.2 MCH 32.7 MCHC 34.0 RDW 16.9 H Plt Count 226 Neut % (Auto) Lymph % (Auto) [place] % (Auto) Eos % (Auto) Baso % (Auto) Neut # (Auto) Lymph # (Auto) [place] # (Auto) Eos # (Auto) Baso # (Auto) Sodium 124 L Potassium 5.3 H Chloride 91 L Carbon Dioxide 26 BUN 42 H Creatinine 1.86 H Estimated GFR 26.1 L BUN/Creatinine Ratio 22.6 H Glucose 94 Calcium 8.7 Magnesium Total Bilirubin Conjugated Bilirubin Unconjugated Bilirubin AST ALT Alkaline Phosphatase Troponin I 0.013 Total Protein Albumin Globulin Albumin/Globulin Ratio Urine Color Urine Appearance Urine pH Ur Specific [place] Urine Protein Urine Glucose (UA) Urine Ketones Urine Occult Blood Urine Nitrate Urine Bilirubin Urine Urobilinogen Ur Leukocyte Esterase Urine RBC Urine WBC Ur Squamous Epith Cells Urine Bacteria Ur Culture Indicated? Ur Random Sodium Urine Creatinine SARS-CoV-2 (PCR) 03/15/21 17:42 WBC RBC Hgb Hct MCV MCH MCHC RDW Plt Count Neut % (Auto) Lymph % (Auto) [place] % (Auto) Eos % (Auto) Baso % (Auto) Neut # (Auto) Lymph # (Auto) [place] # (Auto) Eos # (Auto) Baso # (Auto) Sodium 124 L Potassium 5.1 Chloride 93 L Carbon Dioxide 24 BUN 44 H Creatinine 1.83 H Estimated GFR 26.6 L BUN/Creatinine Ratio 24.0 H Glucose 103 Calcium 8.2 L Magnesium Total Bilirubin Conjugated Bilirubin Unconjugated Bilirubin AST ALT Alkaline Phosphatase Troponin I Total Protein Albumin Globulin Albumin/Globulin Ratio Urine Color Urine Appearance Urine pH Ur Specific [place] Urine Protein Urine Glucose (UA) Urine Ketones Urine Occult Blood Urine Nitrate Urine Bilirubin Urine Urobilinogen Ur Leukocyte Esterase Urine RBC Urine WBC Ur Squamous Epith Cells Urine Bacteria Ur Culture Indicated? Ur Random Sodium Urine Creatinine SARS-CoV-2 (PCR) [facility] Medical History Breast cancer, left CHF (congestive heart failure) 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) Ischemic cardiomyopathy Status post bilateral mastectomy (11/09/16) Surgical History History of left heart catheterization Status post bilateral mastectomy Status post hysterectomy Family History Father Heart disease Polio Daughter Breast cancer in female Social History marital status: household members: spouse occupational status: employed Smoking Status: Current every day smoker alcohol intake: current substance use type: does not use Assessment & Plan Assessment & Plan narrative: Deborah Samuels is a 80W with PMH CAD, breast cancer, hodgkins lymphoma, CHF who presents with breast cellulitis vs mass, ALESIA, and CHF exacerbation. 1. Left breast cellulitis vs mass, acute and present on admission -appreciate surgical consult -discontinued IV contrast with CT scan as patient has worsening renal function -Start IV ampicillin sulbactam 3 grams qid -Blood cultures were drawn in the ED 2. Acute on chronic congestive heart failure exacerbation likely secondary to ischemic cardiomyopathy, present on admission -ProBNP was over 4000 -She is on a fluid restricted diet of 1200 mL per day with regular salt content due to current hyponatremia -She is ordered for an echo which showed EF 50% and basal to mid infeior wall aneursymal appearance -lasix held due to hypotension -metoprolol held due to hypotension 3. Hypotension, symptomatic -etiology not clear -occurred suddenly on 03/15 -possibly from medications with imdur, metop, and lasix, all stopped 4. Right sided chest pain -occurred at same time as hypotension -unclear if MSK -EKG showed no acute changes, troponins trending, think less likely is ACS -ordered NM scan for eval for PE 5. Coronary artery disease, chronic and present on admission -During her last cardiac catheterization it was recommended that she undergo a high risk PCI. She stated that she was turned down for any kind of surgeries that involved general anesthesia due to her heart. When she underwent left and right heart cardiac catheterizations in November, she was under light sedation. -Continue home dose of aspirin 81 mg p.o. daily and continue lisinopril 5 mg p.o. daily -continue aspirin and statin 6. Tobacco dependence, chronic and present on admission -she has been encouraged to quit smoking. 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 Edema of the left upper extremity and hand -She will be encouraged to elevate her left extremity and hand -Consider wound care consultation as this is likely lymphedema not cellulitis and educating her on appropriate compression. 8. History of Hodkin's lymphoma -concern for possible recurrence, will need to discuss further possibly as outpatient with oncologist Code Status: Full Code as discussed with patient Sinan Samuels and JASEN
[2021-03-15] MEDS: HEPARIN 5,000 UNIT/ML VIAL 5000 UNIT SUBCUT (21:20)
--- NOTE | 2021-03-15 22:10 | PC.NURSE ---
PATIENT IS REFUSING SORTO AT THIS TIME, GETTING UP TO BSC, SBA THIS SHIFT
[2021-03-15 22:30] LABS: Troponin I 0.013 ng/mL (0.01-0.034)
[2021-03-16] VITALS (15 sets, daily range): BP systolic 92–124; BP diastolic 47–59; PULSE 89–106; RESP 15–22; TEMP 35.7–36.8; O2SAT 89–99
[2021-03-16] MEDS: IPRATROPIUM 0.5 MG/2.5 ML NEB INH ×6 (00:32→23:06)
[2021-03-16] MEDS: TRAMADOL 50 MG TABLET PO ×2 (04:03→10:27)
[2021-03-16 05:29] LABS: Hematocrit 31.6 % (36-46); Hemoglobin 10.6 g/dL (12.0-16.0); Mean Corpuscular HGB Conc 33.5 % (30-36); Mean Corpuscular Hemoglobin 32.1 PG (26-34); Mean Corpuscular Volume 95.6 fL (80-100); Platelet Count 188 X10^3/uL (150-400); Red Cell Distribution Width 16.7 % (11.6-14.8); White Blood Cell Count 5.9 X10^3/uL (4.5-11.0)
[2021-03-16 05:33] LABS: BUN Creatinine Ratio 24.1 (6-22); Blood Urea Nitrogen 45 mg/dL (7-17); Calcium 8.2 mg/dL (8.4-10.2); Carbon Dioxide 27 mmol/L (22-32); Chloride 93 mmol/L (98-107); Estimated Glomerular Filt Rate 25.9 mL/min (>60); Glucose 92 mg/dL (80-110); HEMOLYSIS 18 (0-50); Potassium 5.1 mmol/L (3.4-5.1); Sodium 124 mmol/L (137-145)
[2021-03-16 05:46] LABS: Troponin I 0.014 ng/mL (0.01-0.034)
[2021-03-16] MEDS: LEVOTHYROXINE 150 MCG TABLET PO (06:56)
[2021-03-16] MEDS: AMPICILLIN/SULBACTAM 3 GM 3 GM in SODIUM CHLORIDE 0.9% 100 ML IV ×3 (06:56→19:26)
[2021-03-16] MEDS: METOPROLOL IR 25 MG TABLET 12.5 MG PO (08:37)
[2021-03-16] MEDS: LIDOCAINE PATCH 1 EACH ADH..PATCH TOP (08:37)
[2021-03-16] MEDS: NICOTINE 14 PATCH 14 MG TOP (08:40)
[2021-03-16] MEDS: HEPARIN 5,000 UNIT/ML VIAL 5000 UNIT SUBCUT (10:27)
[2021-03-16] MEDS: SODIUM CHLORIDE 0.9% 250 ML 21 ML IV (12:03)
--- NOTE | 2021-03-16 12:06 | CM.IDA ---
Initial DCP Assessment Note Pt is an 80 yo female, resident of [place], presents w/Cellulitis of the left breast and CHF exacerbation, everyday smoker, cardiac history, known h/o breast cancer w/ mastectomy (2016), h/o Hodgkin's lymphoma considered to be in remission Consult from Dr Pelaez yesterday; The axillary lymphadenopathy is concerning for either lymphoma reoccurrence vs breast cancer reoccurrence. Ideally would proceed with an exicsional lymph node biopsy however she is at high surgical risk given her CHF and ischemic cardiomyopathy According to Dr Walsh, patient scheduled to go the OR tomorrow 03.17.21 to drain site of fluid collection PCP: Arpit Abdi Payer: [facility]/[employer] Met w/patient, introduced role. Patient appears very tired, explains she lives w/spouse and lives next door to dtr and grand dtr who are available to assist as needed. Patient says she is awaiting drain and biopsy results before talking w/her family about her next steps in treatment, states w/ h/o breast CA and Hodgkin's lymphoma she has thought a lot about treatment vs no treatment if she had a recurrence. Offered support and patient appreciative, states she intends to return home w/her very supportive family upon DC; patient has lived on [place] for 40+ years MARYANN Sahu Discharge Planning/Care Management CM Discharge Assessment Start: 03/16/21 11:28 Freq: Status: Active Protocol: Document 03/16/21 11:29 RENNY (Rec: 03/16/21 12:06 RENNY [id number]) Discharge Planning Assessment Assigned Rn Cardiac MARYANN Bain DPOA/Assigned Designee Name Sinan Samuels, spouse Contact Information [phone], Advance Directives? No History Provided By Patient Prior Living Arrangements House Household Members spouse Type of transporation used prior to Relies on Others admit Independent with ADL's Yes: States she has low activity tolerance Is patient alert and oriented? Yes Patient/Family Preference Home with Home Health Comment States has supportive family Discharge Plan Home Transportation Arrangement Family Referrals Initiated None needed Additional Comment At this time Whiteboard Updated in Patient Room with Yes name and ext. # of Rn Cardiac
--- NOTE | 2021-03-16 12:46 | P.PN_ITS ---
Subjective Subjective Date Patient Seen: 03/16/21 Time Patient Seen: 12:46 Interval history: Erythema of the left arm and pain have improved. No acute events. Exam Vital Signs (past 8 hours): - 03/16/21 06:44 03/16/21 08:00 03/16/21 11:30 Temperature 98.2 F Pulse Rate 100 H 100 H Respiratory Rate 18 18 Blood Pressure 103/47 L Pulse Oximetry 94 92 95 03/16/21 11:36 03/16/21 11:43 Temperature Pulse Rate 89 Respiratory Rate 18 Blood Pressure Pulse Oximetry 95 95 Oxygen Delivery Method Nasal Cannula Oxygen Flow Rate 2 Narrative Exam Narrative: General adult female alert oriented no acute distress Left chest wall fluid filled cavity axillary lymphadenopathy. Objective Labs Result Diagrams: 03/16/21 05:05 03/16/21 05:05 Labs: Laboratory Results - last 24 hr 03/14/21 03/15/21 03/15/21 20:30 13:28 17:42 WBC 5.7 RBC 3.40 L Hgb 11.1 L Hct 32.7 L MCV 96.2 MCH 32.7 MCHC 34.0 RDW 16.9 H Plt Count 226 Sodium 124 L Potassium 5.3 H Chloride 91 L Carbon Dioxide 26 BUN 42 H Creatinine 1.86 H Estimated GFR 26.1 L BUN/Creatinine Ratio 22.6 H Glucose 94 Calcium 8.7 Troponin I Ur Random Sodium 74 Urine Creatinine 79.3 Nasal Screen MRSA (PCR) 03/15/21 03/15/21 03/15/21 17:42 17:42 22:00 WBC RBC Hgb Hct MCV MCH MCHC RDW Plt Count Sodium 124 L Potassium 5.1 Chloride 93 L Carbon Dioxide 24 BUN 44 H Creatinine 1.83 H Estimated GFR 26.6 L BUN/Creatinine Ratio 24.0 H Glucose 103 Calcium 8.2 L Troponin I 0.013 0.013 Ur Random Sodium Urine Creatinine Nasal Screen MRSA (PCR) 03/16/21 03/16/21 03/16/21 00:20 05:05 05:05 WBC 5.9 RBC 3.30 L Hgb 10.6 L Hct 31.6 L MCV 95.6 MCH 32.1 MCHC 33.5 RDW 16.7 H Plt Count 188 Sodium 124 L Potassium 5.1 Chloride 93 L Carbon Dioxide 27 BUN 45 H Creatinine 1.87 H Estimated GFR 25.9 L BUN/Creatinine Ratio 24.1 H Glucose 92 Calcium 8.2 L Troponin I 0.014 Ur Random Sodium Urine Creatinine Nasal Screen MRSA (PCR) Negative for mrsa [facility] Medical History Breast cancer, left CHF (congestive heart failure) 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) Ischemic cardiomyopathy Status post bilateral mastectomy (11/09/16) Surgical History History of left heart catheterization Status post bilateral mastectomy Status post hysterectomy Family History Father Heart disease Polio Daughter Breast cancer in female Social History marital status: household members: spouse occupational status: employed Smoking Status: Current every day smoker alcohol intake: current substance use type: does not use Assessment & Plan Assessment & Plan narrative: 80-year-old female history of lymphoma and breast cancer admitted to hospital with congestive heart failure left upper extremity cellulitis. Spoke with Dr. Espinoza of Oncology yesterday. It would be helpful to obtain axillary lymph node tissue as lymphadenopathy may represent lymphoma recurrence versus benign reactive disease. Will plan for incision and drainage of chest seroma and excisional lymph node biopsy of left axilla tomorrow.
--- NOTE | 2021-03-16 14:56 | PC.NURSE ---
Patient transported to [facility] via wheelchair.
--- NOTE | 2021-03-16 16:36 | P.PN_ITS ---
Subjective Subjective Date Patient Seen: 03/16/21 Time Patient Seen: 08:00 Interval history: Today she feels somewhat improved. Less dizzy. Right sided chest pain improved but still present. Slightly more short of breath then yesterday after IV fluids. Exam Vital Signs (past 8 hours): - 03/16/21 11:30 03/16/21 11:36 03/16/21 11:43 Temperature Pulse Rate 89 Respiratory Rate 18 Blood Pressure Pulse Oximetry 95 95 95 03/16/21 14:41 03/16/21 15:47 03/16/21 16:00 Temperature 97.0 F L Pulse Rate 95 H 92 H Respiratory Rate 18 20 Blood Pressure 94/57 L 103/59 L Pulse Oximetry 93 99 93 Oxygen Delivery Method Nasal Cannula Oxygen Flow Rate 1 Narrative Exam Narrative: GENERAL- no acute distress PULM: bilateral wheezing CV: Left breast resected, has erythema, and intertrigo under breast folds CV: regular rate and rhythm with no murmurs Abd: soft, non-tender, normal bowel sounds Skin: Left arm is edematous from the axilla to the the dorsem of her left hand and fingers Objective Labs Result Diagrams: 03/16/21 05:05 03/16/21 05:05 Labs: Laboratory Results - last 24 hr 03/15/21 03/15/21 03/15/21 17:42 17:42 17:42 WBC 5.7 RBC 3.40 L Hgb 11.1 L Hct 32.7 L MCV 96.2 MCH 32.7 MCHC 34.0 RDW 16.9 H Plt Count 226 Sodium 124 L Potassium 5.1 Chloride 93 L Carbon Dioxide 24 BUN 44 H Creatinine 1.83 H Estimated GFR 26.6 L BUN/Creatinine Ratio 24.0 H Glucose 103 Calcium 8.2 L Troponin I 0.013 Nasal Screen MRSA (PCR) 03/15/21 03/16/21 03/16/21 22:00 00:20 05:05 WBC RBC Hgb Hct MCV MCH MCHC RDW Plt Count Sodium 124 L Potassium 5.1 Chloride 93 L Carbon Dioxide 27 BUN 45 H Creatinine 1.87 H Estimated GFR 25.9 L BUN/Creatinine Ratio 24.1 H Glucose 92 Calcium 8.2 L Troponin I 0.013 0.014 Nasal Screen MRSA (PCR) Negative for mrsa 03/16/21 05:05 WBC 5.9 RBC 3.30 L Hgb 10.6 L Hct 31.6 L MCV 95.6 MCH 32.1 MCHC 33.5 RDW 16.7 H Plt Count 188 Sodium Potassium Chloride Carbon Dioxide BUN Creatinine Estimated GFR BUN/Creatinine Ratio Glucose Calcium Troponin I Nasal Screen MRSA (PCR) [facility] Medical History Breast cancer, left CHF (congestive heart failure) 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) Ischemic cardiomyopathy Status post bilateral mastectomy (11/09/16) Surgical History History of left heart catheterization Status post bilateral mastectomy Status post hysterectomy Family History Father Heart disease Polio Daughter Breast cancer in female Social History marital status: household members: spouse occupational status: employed Smoking Status: Current every day smoker alcohol intake: current substance use type: does not use Assessment & Plan Assessment & Plan narrative: Deborah Samuels is a 80W with PMH CAD, breast cancer, hodgkins lymphoma, CHF who presents with breast cellulitis vs mass, ALESIA, and CHF exacerbation. 1. Left breast cellulitis vs mass, acute and present on admission -appreciate surgical consult -discontinued IV contrast with CT scan as patient has worsening renal function -Start IV ampicillin sulbactam 3 grams qid -Blood cultures were drawn in the ED -per surgery plan for axillary lymph node biopsy with surgery tomorrow 2. Acute on chronic congestive heart failure exacerbation likely secondary to ischemic cardiomyopathy, present on admission -ProBNP was over 4000 -She is on a fluid restricted diet of 1200 mL per day with regular salt content due to current hyponatremia -She is ordered for an echo which showed EF 50% and basal to mid infeior wall aneursymal appearance -restarting lasix -restarting metoprolol 3. Hypotension, symptomatic, resolved -etiology not clear -occurred suddenly on 03/15 -possibly from medications with imdur, metop, and lasix -improved on 03/16 so will restart metoprolol and oral lasix, hold imdur 4. Right sided chest pain -occurred at same time as hypotension -unclear if MSK -EKG showed no acute changes, troponins trending, think less likely is ACS -ordered NM scan for eval for PE with intermediate risk for PE -for now avoid CTA due to ALESIA -anticoagulate with IV heparin 5. Coronary artery disease, chronic and present on admission -During her last cardiac catheterization it was recommended that she undergo a high risk PCI. She stated that she was turned down for any kind of surgeries that involved general anesthesia due to her heart. When she underwent left and right heart cardiac catheterizations in November, she was under light sedation. -Continue home dose of aspirin 81 mg p.o. daily and continue lisinopril 5 mg p.o. daily -continue statin -aspirin on hold for surgery 6. Tobacco dependence, chronic and present on admission -she has been encouraged to quit smoking. 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 Edema of the left upper extremity and hand -She will be encouraged to elevate her left extremity and hand -Consider wound care consultation as this is likely lymphedema not cellulitis and educating her on appropriate compression. 8. History of Hodkin's lymphoma -concern for possible recurrence, will need to discuss further possibly as out patient with oncologist 9. ALESIA on likely CKD stage 2 -likely multifactorial cause of ALESIA, likely ATN -initially thought secondary to poor perfusion with CHF -did not improve with diuresis -needed stat IVF bolus, which did not improve creatinine -patient refusing farias, so difficult to get I/Os currently -possibly worsened in setting of getting IV contrast -FENA on 03/14 was 1.2% more consistent with ATN 10. Hyponatemia -present on baseline -has chronic hyponatremia -possibly a component of SIADH vs fluid overload -on fluid restriction currently Code Status: DNR/DNI as discussed with patient on 03/16, Sinan Samuels is and POA
[2021-03-16] MEDS: HEPARIN 5,000 UNIT/ML VIAL 7500 UNIT IV (17:55)
[2021-03-16] MEDS: HEPARIN DRIP 25,000 UNIT/500 ML IV.SOLN 24 UNIT IV (17:56)
[2021-03-16] MEDS: FUROSEMIDE 40 MG TABLET PO (18:12)
[2021-03-16] MEDS: ATORVASTATIN 20 MG TABLET 40 MG PO (20:49)
--- NOTE | 2021-03-16 22:36 | PC.NURSE ---
HEPARIN DRIP STOPPED, NEXT LAB DRAW WILL BE AT 2330
[2021-03-17] VITALS (16 sets, daily range): BP systolic 95–137; BP diastolic 31–126; PULSE 74–119; RESP 13–22; TEMP 35.4–37.1; O2SAT 86–98; BMI 35.0
[2021-03-17] LABS: PTT Partial Thromboplastin Tim 258 SECONDS (26.4-36.2)
--- NOTE | 2021-03-17 | PATH_ITS ---
[facility] Accession Number: [id number] . 01 Material submitted: . PART A: skin - TISSUE NEAR LEFT MASTECTOMY SCAR PART B: breast - SCAR VS LEFT BREAST CANCER RECURRENCE PART C: lymph node - LEFT DEEP AXILLARY LYMPH NODE . 01 Clinical history: . SENT BY SURGEONS OFFICE TO BE TREATED . 02 Diagnosis: A. Tissue Near Left Mastectomy Scar: Positive for invasive carcinoma with lobular differentiation by immunohistochemistry studies. Please see microscopic description for biomarker studies. . B. Scar Versus Left Breast Cancer Recurrence: Positive for invasive carcinoma. Morphologic features are consistent with patient's known lobular breast carcinoma. . C. Left Deep Axillary Lymph Node, Excision: Positive for metastatic breast carcinoma with lobular differentiation. Please see microscopic description for biomarker studies. [facility] 03/24/2021 1642 Local . 02 Electronically signed: . Tara Almanza MD, Pathologist NPI- [id number] . 01 Gross description: . A. The specimen is received in formalin and labeled with tissue near left mastectomy scar. It consists of a 4.3 x 2.5 cm white-cabrera, wrinkled skin fragment excised to a depth of 1.7 cm. The specimen is received unoriented and the resection margin is inked black. The tips are removed and the specimen is serially sectioned. Sectioning reveals two firm hardened nodules ranging from 0.4 to 0.5 cm in greatest dimension within the skin surface. Sectioning the nodules reveal white-cabrera to brown-cabrera fibrous cut surfaces. The remaining cut surfaces are made up of youssef-cabrera to yellow-cabrera unremarkable fibroadipose tissue sections. The specimen is submitted entirely. . Summary of Sections: A1 = 12 o'clock and 6 o'clock tips, two pieces. A2-A6 = Remaining fragment, serially sectioned, one piece. A7-A9 - Remaining fragment, serially sectioned to include nodules, one piece. . B. Specimen B is received in formalin labeled with scar versus breast cancer recurrence. It consists of two irregular unoriented yellow- cabrera to pink-cabrera fibroadipose soft tissue fragments ranging from 1.3 to 1.5 cm in greatest dimension. The fragments are serially sectioned to reveal youssef-cabrera unremarkable cut surfaces. The specimen is submitted entirely. . Summary of Sections: B1 = First fragment, trisected, three pieces. B2 = Second fragment, bisected, two pieces. . C. Specimen C is received in formalin labeled with left deep axillary lymph node. It consists of a 1.7 x 0.8 x 0.8 cm youssef-cabrera mildly trabeculated nodule with a scant amount of yellow-cabrera fibroadipose tissue. The entire external surface is inked black, and the specimen is trisected. Sectioning reveals youssef-cabrera and smooth unremarkable cut surfaces. The specimen is submitted entirely. . Summary of Sections: C1 = Left deep axillary lymph node, trisected, three pieces. ([id number]) /[facility] 03/21/2021 1725 Local . 02 Microscopic: . An immunohistochemistry study is performed to evaluate the cells of interest. The control stain shows appropriate reactivity. . RESULTS: Block A5: E-cadherin: Negative, consistent with lobular differentiation. . Block C1: E-cadherin: Negative and attenuated staining, consistent with lobular differentiation. GATA3: Diffusely positive, tumor consistent with breast origin. . CAP BREAST BIOMARKER REPORTING TEMPLATE: . Block A5: Estrogen Receptor (ER) Status: Negative, less than 1% of tumor nuclei. Please see comment. Average intensity of staining: Not applicable. Primary antibody: SP1 Progesterone Receptor (PgR) Status: Negative, less than 1% of tumor nuclei. Please see comment. Average intensity of staining: Not applicable. Primary antibody: 1E2 HER2 (by immunohistochemistry): Equivocal at 2+. HER2 FISH requested; results will be reported as an addendum. Primary antibody: 4B5 . COMMENT: ER and [place]: No internal controls are present, but external controls are appropriately positive. If needed, testing another specimen that contains internal controls may be warranted for confirmation of ER status. . Cold Ischemia and Fixation Times: Meets requirements in the latest version of the ASCO/CAP guidelines. Testing performed on Block Number: A5 . . Block C1: Estrogen Receptor (ER) Status: Low Positive (1-10% of tumor nuclei). Please see comment. Average intensity of staining: Moderate. Primary antibody: SP1 Progesterone Receptor (PgR) Status: Negative, less than 1% of tumor nuclei. Average intensity of staining: Weak. Primary antibody: 1E2 HER2 (by immunohistochemistry): Equivocal at 2+. HER2 FISH studies requested; results will be reported as an addendum. Primary antibody: 4B5 . COMMENT: The cancer in this sample has a low level (1-10%) of ER expression by IHC. There are limited data on the overall benefit of endocrine therapies for patients with these results, but they currently suggest possible benefit, so patients are considered eligible for endocrine treatment. There are data that suggest invasive cancers with these results are heterogeneous in both behavior and biology and often have gene expression profiles more similar to ER-negative cancers. . Cold Ischemia and Fixation Times: Meets requirements in the latest version of the ASCO/CAP guidelines. Testing performed on Block Number: C1. . TECHNICAL NOTE: The scoring criteria for breast biomarkers by immunohistochemistry is based on the current ASCO/CAP guidelines (Thuy et al, Arch Pathol Lab Med 2010: 134(6): 907-922 / Shay Aguila al, Arch Pathol Lab Med 2014: 138(2):241-256). Deparaffinized sections of formalin fixed tissue (along with appropriate positive controls) are incubated with the above antibody(s). Using the automated Searles stainer, tissue is incubated with the designated antibody* which is then localized by a non-biotin, dual polymer detection system. The external controls are reviewed for appropriate reactivity and found to be adequate. Results on the target cell population are indicated above. These tests have not been validated on decalcified tissue. * This test was developed and its performance characteristics determined by [facility]. It has not been cleared or approved by the U.S. Food and Drug Administration. The FDA has determined that such clearance or approval is not necessary. This test is used for clinical purposes. It should not be regarded as investigational or for research. . 02 Pathologist provided ICD-10: C50.912 . 02 CPT . 013527, 711927, 880936, 707610, F57658, 120560, 432475, Q82097, 224531, 884252, 071836 Performed at: 01 [facility] [address] [place] [address], [place], [place] [id number] MD Scottie Farley MD Phone: [phone] Performed at: 02 [facility] [address] [place] [id number] MD Leigh Ramirez MD Phone: [phone]
[2021-03-17 01:06] LABS: PTT Partial Thromboplastin Tim 105 SECONDS (26.4-36.2)
[2021-03-17] MEDS: AMPICILLIN/SULBACTAM 3 GM 3 GM in SODIUM CHLORIDE 0.9% 100 ML IV ×2 (04:58→13:00)
[2021-03-17 06:53] LABS: Hematocrit 32.7 % (36-46); Mean Corpuscular HGB Conc 33.6 % (30-36); Mean Corpuscular Hemoglobin 32.5 PG (26-34); Mean Corpuscular Volume 96.7 fL (80-100); Platelet Count 210 X10^3/uL (150-400); Red Blood Cell Count 3.38 X10^6/uL (4.0-5.2); Red Cell Distribution Width 17.1 % (11.6-14.8)
[2021-03-17 07:04] LABS: BUN Creatinine Ratio 29.2 (6-22); Blood Urea Nitrogen 49 mg/dL (7-17); Calcium 8.4 mg/dL (8.4-10.2); Carbon Dioxide 28 mmol/L (22-32); Chloride 95 mmol/L (98-107); Estimated Glomerular Filt Rate 29.3 mL/min (>60); Glucose 116 mg/dL (80-110); HEMOLYSIS < 15 (0-50); Sodium 128 mmol/L (137-145)
[2021-03-17 07:08] LABS: Potassium 5.4 mmol/L (3.4-5.1)
[2021-03-17 07:19] LABS: PTT Partial Thromboplastin Tim 193 SECONDS (26.4-36.2)
[2021-03-17] MEDS: IPRATROPIUM 0.5 MG/2.5 ML NEB INH ×4 (07:41→23:30)
[2021-03-17] MEDS: FUROSEMIDE 40 MG TABLET PO ×2 (08:38→19:04)
[2021-03-17] MEDS: METOPROLOL IR 25 MG TABLET 12.5 MG PO (08:39)
[2021-03-17] MEDS: NICOTINE 14 PATCH 14 MG TOP (08:52)
--- NOTE | 2021-03-17 11:44 | DI.US.S_ITS ---
PROCEDURE: US PERIPH VENOUS LOW EXTREM BI INDICATIONS: RULE OUT DEEP VEIN THROMBOSIS TECHNIQUE: Real-time imaging, as well as color and pulse Doppler interrogation, were performed of the deep veins of both legs from the inguinal ligament to the popliteal fossa. COMPARISON: None. FINDINGS: Right: The common femoral, femoral and popliteal veins are normally compressible, and free of intraluminal thrombus. Color and pulse Doppler demonstrate normal phasic intravascular flow. There is normal augmentation response to distal compression maneuver. Left: The common femoral, femoral and popliteal veins are normally compressible, and free of intraluminal thrombus. Color and pulse Doppler demonstrate normal phasic intravascular flow. There is normal augmentation response to distal compression maneuver. IMPRESSION: No sonographic evidence of DVT. Dictated by: Sebastien Jackson M.D. on 03/17/2021 at 12:49 Approved by: Sebastien Jackson M.D. on 03/17/2021 at 12:49
[2021-03-17 13:58] LABS: PTT Partial Thromboplastin Tim 92 SECONDS (26.4-36.2)
--- NOTE | 2021-03-17 19:07 | PC.NURSE ---
TAKEN DOWN FOR SURGERY 1899
[2021-03-17 19:40] LABS: PTT Partial Thromboplastin Tim 34 SECONDS (26.4-36.2)
--- NOTE | 2021-03-17 20:44 | SUR.OPER ---
Supine on padded OR bed, head on pillow, arms secured on padded arm boards at <90 degrees abduction, legs uncrossed, safety belt at thigh, tape over blanket over lower legs.
--- NOTE | 2021-03-17 20:44 | PM.PN.1 ---
Subjective Subjective Date Patient Seen: 03/17/21 Time Patient Seen: 08:00 Interval history: She is feeling somewhat improved today. Her right sided chest pain is improved. Her dizziness is improved. She has no complaints currently. Exam Vital Signs (past 8 hours): - 03/17/21 14:44 03/17/21 15:59 03/17/21 19:34 Temperature 97.3 F L 98.7 F Pulse Rate 102 H 119 H 98 H Respiratory Rate 16 18 20 Blood Pressure 95/47 L 126/126 H Pulse Oximetry 95 98 96 Oxygen Delivery Method Nasal Cannula Oxygen Flow Rate 2 Narrative Exam Narrative: GENERAL- no acute distress PULM: bilateral wheezing CV: Left breast resected, has erythema on skin and into upper left arm, and intertrigo under breast folds CV: regular rate and rhythm with no murmurs Abd: soft, non-tender, normal bowel sounds Skin: Left arm is edematous from the axilla to the the to just above her elbow, only mild edema Objective Labs Result Diagrams: 03/17/21 06:45 03/17/21 06:45 Labs: Laboratory Results - last 24 hr 03/16/21 03/16/21 03/16/21 20:45 21:55 23:30 WBC RBC Hgb Hct MCV MCH MCHC RDW Plt Count APTT TNP TNP 258 H* Sodium Potassium Chloride Carbon Dioxide BUN Creatinine Estimated GFR BUN/Creatinine Ratio Glucose Calcium 03/17/21 03/17/21 03/17/21 00:45 06:45 06:45 WBC 7.0 RBC 3.38 L Hgb 11.0 L Hct 32.7 L MCV 96.7 MCH 32.5 MCHC 33.6 RDW 17.1 H Plt Count 210 APTT 105 H* D Sodium 128 L Potassium 5.4 H Chloride 95 L Carbon Dioxide 28 BUN 49 H Creatinine 1.68 H Estimated GFR 29.3 L BUN/Creatinine Ratio 29.2 H Glucose 116 H Calcium 8.4 03/17/21 03/17/21 03/17/21 06:45 13:20 19:17 WBC RBC Hgb Hct MCV MCH MCHC RDW Plt Count APTT 193 H* D 92 H* D 34 D Sodium Potassium Chloride Carbon Dioxide BUN Creatinine Estimated GFR BUN/Creatinine Ratio Glucose Calcium [facility] Medical History Breast cancer, left CHF (congestive heart failure) 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) Ischemic cardiomyopathy Status post bilateral mastectomy (11/09/16) Surgical History History of left heart catheterization Status post bilateral mastectomy Status post hysterectomy Family History Father Heart disease Polio Daughter Breast cancer in female Social History marital status: household members: spouse occupational status: employed Smoking Status: Current every day smoker alcohol intake: current substance use type: does not use Assessment & Plan Assessment & Plan narrative: Deborah Samuels is a 80W with PMH CAD, breast cancer, hodgkins lymphoma, CHF who presents with breast cellulitis vs mass, ALESIA, and CHF exacerbation. 1. Left breast cellulitis vs mass, acute and present on admission -appreciate surgical consult -Start IV ampicillin sulbactam 3 grams qid -Blood cultures were drawn in the ED -per surgery plan for axillary lymph node biopsy with surgery tomorrow and drainage of seroma to eval for possible lymphoma 2. Acute on chronic congestive heart failure exacerbation likely secondary to ischemic cardiomyopathy, present on admission -ProBNP was over 4000 -She is on a fluid restricted diet of 1200 mL per day with regular salt content due to current hyponatremia -She is ordered for an echo which showed EF 50% and basal to mid infeior wall aneursymal appearance -restarting lasix orally at 40mg BID -restarting metoprolol, increase dose up to 25mg BID for borderline tachycardia in the 90s-100s 3. Hypotension, symptomatic, resolved -etiology not clear -occurred suddenly on 03/15 -possibly from medications with imdur, metop, and lasix -improved on 03/16 so will restart metoprolol and oral lasix, hold imdur -other possibility is PE, however unable to get CTA 4. Right sided chest pain, possible PE -occurred at same time as hypotension -EKG showed no acute changes, troponins negative -ordered NM scan for eval for PE with intermediate risk for PE -for now avoid CTA due to ALESIA -anticoagulate with IV heparin as planned for surgery, afterwards plan to go back on apixaban which she has been on for chronic afib 5. Coronary artery disease, chronic and present on admission -During her last cardiac catheterization it was recommended that she undergo a high risk PCI. She stated that she was turned down for any kind of surgeries that involved general anesthesia due to her heart. When she underwent left and right heart cardiac catheterizations in November, she was under light sedation. -Continue home dose of aspirin 81 mg p.o. daily and continue lisinopril 5 mg p.o. daily -continue statin -aspirin on hold for surgery 6. Tobacco dependence, chronic and present on admission -she has been encouraged to quit smoking. 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 History of Hodkin's lymphoma -concern for possible recurrence, will need to discuss further possibly as outpatient with oncologist 9. ALESIA on likely CKD stage 2 -likely multifactorial cause of ALESIA, likely ATN -initially thought secondary to poor perfusion with CHF -did not improve with diuresis -needed stat IVF bolus, which did not improve creatinine -patient refusing farias, so difficult to get I/Os currently -possibly worsened in setting of getting IV contrast -FENA on 03/14 was 1.2% more consistent with ATN 10. Hyponatemia -present on baseline -has chronic hyponatremia, came in with sodium of 123, improved to 128 today with oral lasix -possibly a component of SIADH vs fluid overload -on fluid restriction currently 11. Chronic atrial fibrillation -will plan to restart apixaban after surgery and then can dc heparin -increase metoprolol back to home dose of metoprolol 25mg BID Code Status: DNR/DNI as discussed with patient on 03/16, Sinan Samuels is and POA
[2021-03-17] MEDS: LIDOCAINE 2% INJ MDV 20 ML INJ (20:52)
[2021-03-17] MEDS: BACITRACIN OINT 0.9 GM PCKT 1 APPLIC TOP (21:03)
--- NOTE | 2021-03-17 22:21 | P.OP.PRE_ITS ---
Pre-operative Note COVID-19 COVID-19 status: Negative Interval Note History & Physical reviewed/Exam performed by Physician: Yes Changes to H&P: Yes H&P completed within 30 days and has changed as indicated here:: Discussed ope ration with the patient. Will do under local with sedation due to her medical problems. Risks of bleeding infection nerve injury discussed. PTT normal immediately preop
--- NOTE | 2021-03-17 22:24 | PM.OP.1 ---
Operative Date/Time/Diagnoses Date of procedure: 03/17/21 Time of procedure: 22:25 Pre-op diagnosis: recurrence cellulitis left arm. Abnormal CT with mass or scar noted on her chest wall in her mastectomy site and multiple large nodes in her left axilla. She was on a heparin drip due to concern of a possible PE and this was stopped prior to the operation when her venous duplex of her lower extremities was negative for DVT. History of classic Hodgkin's lymphoma and breast cancer. treated with ABVD in 2009 for her Hodgkin's disease and treated with radiation and chemotherapy for her breast cancer along with bilateral mastectomies. Post-op diagnosis: same Procedure & Clinicians Procedure: Biopsy of chest wall including skin subcutaneous tissue and scar. Measured 5 x 3 cm. Biopsy left axillary lymph node deep. Cultures taken. Material sent for flow cytometry and for regular processing. Same procedure as scheduled: Yes Indications: Diagnostic Surgeon: Chance Rod Click Yes if Unassisted: Yes Anesthesia Type: General Operative Notes Findings: large matted lymph nodes in the left axilla. Rim. Unable to separate so portions of multiple nodes were removed. Additionally, any ellipse of skin with peau derm rongeured, small nodules, and scar as her mastectomy site was submitted. This appeared to my on eyes to be scar though it is possible it could be breast cancer recurrence. Closure Type: primary Specimen(s): other ( Ellipse of skin subcutaneous fat and scar. Portions of left axillary lymph nodes) Prosthetic devices, grafts, tissues, transplants, or devices: none Estimated Blood Loss (mL): 50 Blood products transfused: none Procedure in detail: the patient was placed supine on the operating table and underwent monitored anesthesia care due to her significant illnesses. She was prepped and draped in the usual fashion. Elliptical incision was made to encompass a portion of her mastectomy scar, skin with peau de rongeured, and small skin nodules. This measured about 5 x 3 cm. It was the incision was carried through fat down to the scar and a portion of the scar removed with the specimen. Additionally, a separate piece of scar was sent. Hemostasis was achieved with cautery. The space was closed with interrupted 3-0 Vicryl. The subcu was closed with interrupted 3-0 Vicryl. Skin was closed with interrupted 4-0 nylon vertical mattress sutures. Attention was turned to the axilla. A transverse incision was made across the axilla and carried down into the tissues deep to the Axillary fascia. nodes were readily available and palpated but there were all matted together. I tried to dissect out 1 or 2 of them but this proved to be difficult reading in-situ despite using clips to control entering into I decided to remove portion of the nodes therefore and selected 2 obvious candidates and cut them longitudinally across their surface. These were submitted for slow cytometry and for permanent section. They also were cultured. It was difficult control the loose through the surface of the lymph nodes. I attempted suturing which proved suboptimal as a just tore through the tissues. Where there were visible vessels I was able either clipped port or suture them. The surface of the nodes were cough advised and slowly I brought the bleeding under control. One satisfied that it was stopped the axillary fascia Was closed with interrupted 3-0 Vicryl, the subcu was closed with interrupted 3-0 Vicryl, and the skin was closed with 4-0 nylon vertical mattress sutures. Dry gauze was applied and patient was awakened and placed back on her bed and taken the recovery room good condition.. Complications: none Post-operative Condition: stable Disposition: PACU
[2021-03-18] VITALS (13 sets, daily range): BP systolic 97–152; BP diastolic 52–89; PULSE 91–110; RESP 16–24; TEMP 35.4–37; O2SAT 90–98
[2021-03-18] MEDS: AMPICILLIN/SULBACTAM 3 GM 3 GM in SODIUM CHLORIDE 0.9% 100 ML IV ×2 (04:16→13:40)
--- NOTE | 2021-03-18 04:24 | PM.CALLCOV.1 ---
Call Coverage Note Note Narrative of Care Provided: Patient went off for surgery at 1900 and is headed out the PACU at 2215. Dr. Rod wishes for her to stay off the heparin drip until the am. Will place SCDs.
[2021-03-18] MEDS: NYSTATIN SUSP 500,000 UNIT/5 ML UDC 500000 UNIT PO ×4 (04:54→20:06)
[2021-03-18] MEDS: LEVOTHYROXINE 150 MCG TABLET PO (05:54)
[2021-03-18 06:47] LABS: Add Manual Diff / Slide Review NO; Basophils Absolute Auto 0 /uL (0-100); Basophils Percent Auto 0.4 % (0-2); Eosinophils Absolute Auto 400 /uL (0-450); Eosinophils Percent Auto 6.8 % (2-4); Hematocrit 30.1 % (36-46); Hemoglobin 10.1 g/dL (12.0-16.0); Lymphocytes Absolute Auto 800 /uL (1100-4500); Lymphocytes Percent Auto 12.8 % (25-40); Mean Corpuscular HGB Conc 33.7 % (30-36); Mean Corpuscular Hemoglobin 32.4 PG (26-34); Mean Corpuscular Volume 96.4 fL (80-100); Monocytes Absolute Auto 600 /uL (0-900); Monocytes Percent Auto 9.2 % (3-14); Neutrophils Absolute Auto 4400 /uL (1500-7000); Neutrophils Percent Auto 70.8 % (50-75); Platelet Count 191 X10^3/uL (150-400); Red Blood Cell Count 3.13 X10^6/uL (4.0-5.2); Red Cell Distribution Width 17.1 % (11.6-14.8); White Blood Cell Count 6.2 X10^3/uL (4.5-11.0)
[2021-03-18 06:51] LABS: INR 1.3 (0.9-1.3); Prothrombin Time 15.2 SECONDS (10.1-12.7)
[2021-03-18 06:56] LABS: BUN Creatinine Ratio 34.3 (6-22); Blood Urea Nitrogen 46 mg/dL (7-17); Calcium 8.2 mg/dL (8.4-10.2); Carbon Dioxide 26 mmol/L (22-32); Chloride 98 mmol/L (98-107); Estimated Glomerular Filt Rate 38.1 mL/min (>60); Glucose 114 mg/dL (80-110); HEMOLYSIS < 15 (0-50); Magnesium 2.1 mg/dL (1.6-2.3); Potassium 4.9 mmol/L (3.4-5.1); Sodium 128 mmol/L (137-145)
[2021-03-18 07:08] LABS: PTT Partial Thromboplastin Tim 34 SECONDS (26.4-36.2)
[2021-03-18] MEDS: IPRATROPIUM 0.5 MG/2.5 ML NEB INH ×3 (07:56→17:03)
[2021-03-18] MEDS: HEPARIN DRIP 25,000 UNIT/500 ML IV.SOLN 20 UNIT IV (08:18)
[2021-03-18] MEDS: NICOTINE 14 PATCH 14 MG TOP (09:21)
[2021-03-18] MEDS: METOPROLOL IR 25 MG TABLET PO ×2 (09:22→20:05)
--- NOTE | 2021-03-18 10:14 | DI.CT.S_ITS ---
PROCEDURE: CT ANGIO CHEST PE PROTOCOL INDICATIONS: Clinical concern for PE TECHNIQUE: After the administration of intravenous contrast, 2 mm thick sections acquired from the pulmonary apices to the posterior costophrenic angles. 3-dimensional maximum intensity projection (MIP) coronal and sagittal reformats were then acquired through the thorax. For radiation dose reduction, the following was used: automated exposure control, adjustment of mA and/or kV according to patient size. COMPARISON: Merged With [facility], CT, CT CHEST WO CON, 03/15/2021, 13:50. Merged With [facility], FL, FL PUL VENT AND PERFUSION, 03/16/2021, 14:57. Merged With [facility], US, US PERIPH VENOUS LOW EXTREM BI, 03/17/2021, 11:24. FINDINGS: Image quality: Excellent. Pulmonary arteries: Pulmonary arteries are normal in size, and demonstrate no intraluminal filling defects to suggest central pulmonary embolism. Lungs and pleura: Centrilobular emphysematous changes are seen, which are worst at the lung apices. There is a small left-sided pleural effusion, with associated dependent atelectasis. Mild dependent atelectasis is also seen on the right. There is no pneumothorax. The central airways are patent. Mediastinum: Heart size is normal, without pericardial effusion. No mediastinal or hilar adenopathy. Thoracic aorta is normal in caliber and enhancement. Esophagus is normal in caliber, without hiatal hernia. Bones and chest wall: No suspicious bony lesions. There is a remote T11 anterior wedge deformity. Mild dextroconvex scoliotic curvature is seen. Age-appropriate bony degenerative changes are seen. Thyroid gland is small in size. Enlarged left axillary lymph nodes are seen, including a matted group of lymph nodes that measures up to 5.7 cm. No enlarged right axillary lymph nodes are seen. Right mastectomy change is seen. Postoperative change of the left breast can be seen, with soft tissue gas. Abdomen: Visualized upper abdominal solid organs appear normal in the early arterial phase of enhancement. IMPRESSION: Negative for pulmonary embolism. Small left-sided pleural effusion. Findings of recent left breast surgery can be seen. Abnormally enlarged left axillary lymph nodes are seen. Prior right mastectomy change. Incidental note is made of: Dependent atelectasis Emphysematous change Remote T11 anterior wedge deformity Dictated by: Sen Hills M.D. on 03/18/2021 at 10:57 Approved by: Sen Hills M.D. on 03/18/2021 at 11:03
--- NOTE | 2021-03-18 11:11 | PM.PNPO.1 ---
Subjective Subjective Date Patient Seen: 03/18/21 Time Patient Seen: 11:11 Interval history: no acute overnight events Exam Vital Signs (past 8 hours): - 03/18/21 04:42 03/18/21 07:45 03/18/21 07:57 Temperature 96.2 F L 97 F L Pulse Rate 99 H 91 H 110 H Respiratory Rate 24 20 16 Blood Pressure 101/59 L 142/63 H Pulse Oximetry 92 95 96 Oxygen Delivery Method Nasal Cannula Oxygen Flow Rate 2 Narrative Exam Narrative: general elderly female alert oriented no acute distress left axilla dressing intact no shadowing or drainage appropriately tender to palpation Objective Labs Result Diagrams: 03/18/21 06:41 03/18/21 06:41 Labs: Laboratory Results - last 24 hr 03/17/21 03/17/21 03/18/21 13:20 19:17 06:41 WBC RBC Hgb Hct MCV MCH MCHC RDW Plt Count Neut % (Auto) Lymph % (Auto) [place] % (Auto) Eos % (Auto) Baso % (Auto) Neut # (Auto) Lymph # (Auto) [place] # (Auto) Eos # (Auto) Baso # (Auto) PT 15.2 H INR 1.3 APTT 92 H* D 34 D 34 Sodium Potassium Chloride Carbon Dioxide BUN Creatinine Estimated GFR BUN/Creatinine Ratio Glucose Calcium Magnesium 03/18/21 03/18/21 06:41 06:41 WBC 6.2 RBC 3.13 L Hgb 10.1 L Hct 30.1 L MCV 96.4 MCH 32.4 MCHC 33.7 RDW 17.1 H Plt Count 191 Neut % (Auto) 70.8 Lymph % (Auto) 12.8 L [place]rill % (Auto) 9.2 Eos % (Auto) 6.8 H Baso % (Auto) 0.4 Neut # (Auto) 4400 Lymph # (Auto) 800 L [place]rill # (Auto) 600 Eos # (Auto) 400 Baso # (Auto) 0 PT INR APTT Sodium 128 L Potassium 4.9 Chloride 98 Carbon Dioxide 26 BUN 46 H Creatinine 1.34 H Estimated GFR 38.1 L BUN/Creatinine Ratio 34.3 H Glucose 114 H Calcium 8.2 L Magnesium 2.1 PFSH Medical History Breast cancer, left CHF (congestive heart failure) 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) Ischemic cardiomyopathy Status post bilateral mastectomy (11/09/16) Surgical History History of left heart catheterization Status post bilateral mastectomy Status post hysterectomy Family History Father Heart disease Polio Daughter Breast cancer in female Social History marital status: household members: spouse occupational status: employed Smoking Status: Current every day smoker alcohol intake: current substance use type: does not use Assessment & Plan Post-op Postoperative Procedures: Procedures Operation Date: 03/17/21 17:15 Actual Procedure Side Surgeon p I&D chest excisional lymph node biopsy Left Chance Rod MD Postoperative status narrative: postoperative day 1 status post excisional lymph node biopsy and incision and drainage of left chest. Recovering appropriately following the procedure. May discharge from a surgical perspective when medically stable - follow-up [address] Rod - activity as tolerated
--- NOTE | 2021-03-18 14:13 | PM.PN.1 ---
Subjective Subjective Interval history: Patient is short of breath, wheezing, and tachycardic with minimal exertion. She underwent CT angio today which documented no evidence of pulmonary embolus. She continues to have swelling and redness over the left chest and arm. She denies any pain. Exam Vital Signs (past 8 hours): - 03/18/21 07:45 03/18/21 07:57 03/18/21 12:07 Temperature 97 F L Pulse Rate 91 H 110 H 104 H Respiratory Rate 20 16 16 Blood Pressure 142/63 H Pulse Oximetry 95 96 95 Oxygen Delivery Method Nasal Cannula Oxygen Flow Rate 2 Narrative Exam Narrative: Pleasant female lying in bed wheezing Resp Other: Diffuse wheezing bilaterally, scattered rhonchi Cardio Other: Irregularly irregular, normal S1-S2, with a 2/6 systolic ejection murmur GI Other: Abdomen soft nontender nondistended Skin Other: Left chest with mild erythema, there is swelling and edema at biopsy site, breast has been removed, the left arm is quite edematous and swollen Objective Labs Result Diagrams: 03/18/21 06:41 03/18/21 06:41 Labs: Laboratory Results - last 24 hr 03/17/21 03/18/21 03/18/21 19:17 06:41 06:41 WBC RBC Hgb Hct MCV MCH MCHC RDW Plt Count Neut % (Auto) Lymph % (Auto) [place] % (Auto) Eos % (Auto) Baso % (Auto) Neut # (Auto) Lymph # (Auto) [place] # (Auto) Eos # (Auto) Baso # (Auto) PT 15.2 H INR 1.3 APTT 34 D 34 Sodium 128 L Potassium 4.9 Chloride 98 Carbon Dioxide 26 BUN 46 H Creatinine 1.34 H Estimated GFR 38.1 L BUN/Creatinine Ratio 34.3 H Glucose 114 H Calcium 8.2 L Magnesium 2.1 03/18/21 06:41 WBC 6.2 RBC 3.13 L Hgb 10.1 L Hct 30.1 L MCV 96.4 MCH 32.4 MCHC 33.7 RDW 17.1 H Plt Count 191 Neut % (Auto) 70.8 Lymph % (Auto) 12.8 L [place] % (Auto) 9.2 Eos % (Auto) 6.8 H Baso % (Auto) 0.4 Neut # (Auto) 4400 Lymph # (Auto) 800 L [place] # (Auto) 600 Eos # (Auto) 400 Baso # (Auto) 0 PT INR APTT Sodium Potassium Chloride Carbon Dioxide BUN Creatinine Estimated GFR BUN/Creatinine Ratio Glucose Calcium Magnesium [facility] Medical History Breast cancer, left CHF (congestive heart failure) 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) Ischemic cardiomyopathy Status post bilateral mastectomy (11/09/16) Surgical History History of left heart catheterization Status post bilateral mastectomy Status post hysterectomy Family History Father Heart disease Polio Daughter Breast cancer in female Social History marital status: household members: spouse occupational status: employed Smoking Status: Current every day smoker alcohol intake: current substance use type: does not use Assessment & Plan Assessment & Plan narrative: Deborah Samuels is a 80W with PMH CAD, breast cancer, hodgkins lymphoma, CHF who presents with breast cellulitis vs mass, ALESIA, and CHF exacerbation. 1. Left breast cellulitis vs mass, acute and present on admission -appreciate surgical consult -Start IV ampicillin sulbactam 3 grams qid -Blood cultures were drawn in the ED -per surgery plan for axillary lymph node biopsy with surgery tomorrow and drainage of seroma to eval for possible lymphoma -doubt cellulitis, suspect recurrent breast cancer, based on CT -await biopsy results -discontinue antibiotics 2. Acute on chronic congestive heart failure exacerbation likely secondary to ischemic cardiomyopathy, present on admission -ProBNP was over 4000 -She is on a fluid restricted diet of 1200 mL per day with regular salt content due to current hyponatremia -She is ordered for an echo which showed EF 50% and basal to mid infeior wall aneursymal appearance -restarting lasix orally at 40mg BID -restarting metoprolol, increase dose up to 25mg BID for borderline tachycardia in the 90s-100s -continue diuresis, continue metoprolol 3. Hypotension, symptomatic, resolved -etiology not clear -occurred suddenly on 03/15 -possibly from medications with imdur, metop, and lasix -improved on 03/16 so will restart metoprolol and oral lasix, hold imdur -other possibility is PE, however unable to get CTA -no further hypotension, given improvement of renal function the patient did have a CT angio 4. Right sided chest pain, possible PE -occurred at same time as hypotension -EKG showed no acute changes, troponins negative -ordered NM scan for eval for PE with intermediate risk for PE -for now avoid CTA due to ALESIA -anticoagulate with IV heparin as planned for surgery, afterwards plan to go back on apixaban which she has been on for chronic afib -CT angio reveals no evidence of pulmonary embolus, IV heparin discontinued, will resume her apixaban 5. Coronary artery disease, chronic and present on admission -During her last cardiac catheterization it was recommended that she undergo a high risk PCI. She stated that she was turned down for any kind of surgeries that involved general anesthesia due to her heart. When she underwent left and right heart cardiac catheterizations in November, she was under light sedation. -Continue home dose of aspirin 81 mg p.o. daily and continue lisinopril 5 mg p.o. daily -continue statin -aspirin on hold for surgery 6. Tobacco dependence, chronic and present on admission, acute exacerbation of COPD, acute hypoxic respiratory failure -patient is hypoxic, room air sat 87%, she is bronchospastic and wheezing -will continue inhalers, nebulizers, and start a 5 day course of prednisone given her hypoxemia and wheezing -she has been encouraged to quit smoking. 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 History of Hodkin's lymphoma -concern for possible recurrence, will need to discuss further possibly as outpatient with oncologist 9. ALESIA on likely CKD stage 2 -likely multifactorial cause of ALESIA, likely ATN -initially thought secondary to poor perfusion with CHF -did not improve with diuresis -needed stat IVF bolus, which did not improve creatinine -patient refusing farias, so difficult to get I/Os currently -possibly worsened in setting of getting IV contrast -FENA on 03/14 was 1.2% more consistent with ATN -improved 10. Hyponatemia -present on baseline -has chronic hyponatremia, came in with sodium of 123, improved to 128 today with oral lasix -possibly a component of SIADH vs fluid overload -on fluid restriction currently 11. Chronic atrial fibrillation -will plan to restart apixaban after surgery and then can dc heparin -increase metoprolol back to home dose of metoprolol 25mg BID Code Status: DNR/DNI as discussed with patient on 03/16, Sinan Samuels is and POA
[2021-03-18] MEDS: BISACODYL 5 MG TABLET 10 MG PO (17:01)
[2021-03-18 19:05] LABS: PTT Partial Thromboplastin Tim 32 SECONDS (26.4-36.2)
[2021-03-18] MEDS: ATORVASTATIN 20 MG TABLET 40 MG PO (20:06)
[2021-03-18] MEDS: APIXABAN 5 MG TABLET PO (20:06)
--- NOTE | 2021-03-18 21:55 | PC.NURSE ---
Evening Shift Note 1955- Patient with 11 beat run of vtach, patient asymptomatic, BP 99/68. MD aware, no new orders. 2100 PO metoprolol given, will continue to monitor.
[2021-03-18] MEDS: ALBUTEROL 2.5 MG/3 ML NEB (ADULT) INH (23:30)
[2021-03-19 04:20] VITALS: BP 95/70; PULSE 98; RESP 22; TEMP 36.6; O2SAT 92
[2021-03-19] MEDS: LEVOTHYROXINE 150 MCG TABLET PO (05:46)
[2021-03-19 06:11] LABS: Add Manual Diff / Slide Review NO; Basophils Absolute Auto 0 /uL (0-100); Basophils Percent Auto 0.3 % (0-2); Eosinophils Absolute Auto 300 /uL (0-450); Eosinophils Percent Auto 5.3 % (2-4); Hemoglobin 10.1 g/dL (12.0-16.0); Lymphocytes Absolute Auto 1000 /uL (1100-4500); Lymphocytes Percent Auto 14.7 % (25-40); Mean Corpuscular HGB Conc 33.8 % (30-36); Mean Corpuscular Hemoglobin 32.7 PG (26-34); Mean Corpuscular Volume 96.7 fL (80-100); Monocytes Absolute Auto 600 /uL (0-900); Monocytes Percent Auto 9.8 % (3-14); Neutrophils Absolute Auto 4600 /uL (1500-7000); Neutrophils Percent Auto 69.9 % (50-75); Platelet Count 193 X10^3/uL (150-400); Red Cell Distribution Width 17.3 % (11.6-14.8); White Blood Cell Count 6.6 X10^3/uL (4.5-11.0)
[2021-03-19 06:32] LABS: BUN Creatinine Ratio 33.6 (6-22); Blood Urea Nitrogen 38 mg/dL (7-17); Calcium 8.4 mg/dL (8.4-10.2); Carbon Dioxide 28 mmol/L (22-32); Chloride 98 mmol/L (98-107); Estimated Glomerular Filt Rate 46.3 mL/min (>60); Glucose 126 mg/dL (80-110); HEMOLYSIS < 15 (0-50); Magnesium 2.2 mg/dL (1.6-2.3); Potassium 4.8 mmol/L (3.4-5.1); Sodium 129 mmol/L (137-145)
[2021-03-19 07:38] VITALS: BP 124/54; PULSE 105; RESP 24; TEMP 36.4; O2SAT 92
[2021-03-19 07:49] VITALS: PULSE 106; RESP 20; O2SAT 93
[2021-03-19] MEDS: IPRATROPIUM 0.5 MG/2.5 ML NEB INH ×3 (07:49→15:46)
[2021-03-19] MEDS: METOPROLOL IR 25 MG TABLET PO (09:12)
[2021-03-19] MEDS: APIXABAN 5 MG TABLET PO (09:12)
[2021-03-19] MEDS: NICOTINE 14 PATCH 14 MG TOP (09:12)
[2021-03-19] MEDS: NYSTATIN SUSP 500,000 UNIT/5 ML UDC 500000 UNIT PO ×2 (09:14→13:31)
--- NOTE | 2021-03-19 10:39 | PM.DS.1 ---
History of Present Illness History of Present Illness Chief complaint: Cellulitis of the left breast, CHF exacerbation Narrative: Deborah Samuels is an 80 y.o. smoking female with current diagnoses of congestive heart failure secondary to ischemic cardiomyopathy, coronary artery disease, persistent atrial fibrillation, hypertension, hyperlipidemia, COPD, Hodgkin's lymphoma considered to be in remission, and left breast invasive ductal carcinoma stage II T2 N0 with mastectomy done in 2016 presented today with shortness of breath, fatigue, found to be hypoxic in the low 90% oxygen saturation in the emergency department and a suspected cellulitis of the left breast. She was also found to be hyponatremic with a sodium of 123. She states that she has been short of breath for months, she denies having a fever, she does endorse having gained weight over the past month due to not eating properly, she has pain in her left breast an arm and states that it swelling and hot on her upper arm. She denies chest wall pain she denies cardiac pain denies nausea or vomiting, she does endorse having less than usual urinary output, she does have chronic constipation. In the emergency department the patient was examined and had a chest x-ray indicating left basilar atelectasis, left pleural effusion. Patient currently is afebrile, blood pressure is currently 96/44, heart rate 95, respiratory rate 18, oxygen saturation 93% on room air, she weighs 90.7 kg with a BMI of 30.4. WBC is 7.9, RBC 3.64, hemoglobin 11.9, hematocrit 34.7, platelet count 296, her sodium is 123, potassium 5.9, chloride 87, bicarb 31, BUN 37, creatinine 1.57 which is elevated over baseline, with a GFR of 31.7, AST is 48, alk-phos is 129, she has a normal troponin, proBNP is 4030, procalcitonin is 0.7, UA is negative for a UTI, and COVID-19 PCR is negative. Patient initially presented to her oncologist Dr. Espinoza with complaints of a mass over her left breast. The patient is currently taking exemestane, a chemotherapeutic agent and was seen by him on February 22. He was concerned about the mass being a seroma and at that time estimated it was 6 x 8 cm with the pew to orange appearance and mild erythema. She was referred to ultrasound and then referred to general surgery for further evaluation. He ultrasound done on the 28 of February indicated a large area of subcutaneous edema and increased vascularity in the upper outer quadrant of the left breast with underlying skin thickening that corresponded to the palpable out abnormality. They also indicated presence of a 2.7 x 0.6 by 1.0 cm irregular hypoechoic lesion that was concerning for an inflammatory phlegmon, postsurgical scarring or less likely a solid mass. The ultrasound recommended treatment for an infection though did not exclude an underlying breast mass. She was then seen by General surgery on March 03 who started the patient on Keflex 500 mg q.i.d. with a request for a 2 week recall and re-evaluation. His note indicated that the large lymph node was concerning for possibly reactive versus is recurrence of lymphoma. The patient sees Dr. Muñiz, of [facility] who is currently treating her for coronary artery disease and ischemic cardiomyopathy. She underwent right and left radial cardiac catheterization in November of this year that indicated she had an ostial LAD with 40-50% stenosis and mid ED with calcific 40% doses. She also has chronic total occlusion of the mid left circumflex and ostial right circumflex artery with no [id number] for left to right collaterals seen. New findings included normal caliber left LAD with 70% stenosis of the ostium and calcific 40% stenosis in the midvessel, left circum plaques with normal caliber vessels and total occlusion in the mid segment and the right RCA had total chronic occlusion at the ostium. Recommendation was for a high risk PCI to be done at the [facility], the patient had been previously turned down for a CABG due to her previous chest radiation and and was considered too high of a risk to have PCI performed at [facility]. It appears as if she has not undergone the PCI. Discharge Providers Provider Date of admission: 03/14/21 19:53 Discharge Date: 03/19/21 Primary care physician: Arpit Abdi MD Consults: 03/14/21 19:37 Consult to General Surgery Stat Comment: Consulting Provider: Mike Pelaez Reason for consultation: cellulitis Has provider been notified: Yes 03/14/21 21:25 Consult to Physician Routine Comment: Consulting Provider: Mike Pelaez Reason for consultation: Left breast mastectomy, cellulitis Has provider been notified: Yes 03/18/21 14:15 Consult to Physical Therapy Evaluate & Treat Comment: Physician Instructions: Evaluate and Treat 03/19/21 08:24 Consult to Respiratory Therapy Evaluate & Treat Comment: home oxygen evaluation, also home nebulizer Physician Instructions: Evaluate and treat Discharge provider: Leslie Chavez MD Summary Hospital Course Discharge Diagnosis: 1. Acute hypoxic respiratory failure 2. COPD exacerbation 3. Acute on chronic congestive heart failure with preserved ejection fraction 4. nicotine dependence 5. Left breast swelling question cellulitis verses recurrent cancer 6. History of breast cancer 7. History of Hodgkin's lymphoma 8. Acute kidney injury, improved Hospital Course: The patient is a 80-year-old female who was admitted to the hospital with a concern for left chest wall cellulitis. She has a history of breast cancer, status post mastectomy, and a history of Hodgkin's lymphoma. She underwent ultrasound of the breast which showed an irregular fluid collection of the left breast that included a diagnosis of abscess hematoma seroma or less likely solid mass. There were multiple enlarged irregular lymph nodes in the axillary area. A CT of the chest revealed left breast carcinoma with cutaneous thickening and prominent left axillary adenopathy. Patient developed hypotension during the hospital stay in the setting of diuresis. The the diuretics were discontinued. Patient did have some chest pain and there was concern regarding a possible PE. V/Q scan was obtained which was indeterminate. Patient was placed on IV heparin. Patient had improvement of the left chest wall cellulitis. Chest pain improved. She did develop increasing shortness of breath after IV hydration. The patient underwent a biopsy of the chest wall including skin and subcutaneous scar. There was a biopsy of the left axillary lymph node. Cultures were obtained the material was sent for flow cytometry. Blood cultures were negative. Wound specimens g stain showed no growth. Patient continued to be hypoxic with wheezing. She was treated with albuterol Atrovent nebulizers. Patient is allergic to steroids and therefore was not able to receive steroids. She did require oxygen at discharge. Her O2 sat at rest was 86. With 2 L she desaturated to 83% and became dizzy and nearly fainted. Patient is anxious to return home. She will be discharged home on oxygen, she will follow-up with her oncologist regarding the biopsy results. Patient will complete a course of antibiotics for her cellulitis as well. Patient was deemed appropriate for discharge and discharged home. Exam Vital Signs (past 8 hours): - 03/19/21 04:20 03/19/21 07:38 03/19/21 07:49 Temperature 97.9 F 97.5 F L Pulse Rate 98 H 105 H 106 H Respiratory Rate 22 24 20 Blood Pressure 95/70 124/54 L Pulse Oximetry 92 92 93 Oxygen Delivery Method Nasal Cannula Oxygen Flow Rate 2 Narrative Exam Narrative: Pleasant female resting comfortably in no obvious distress Lungs: Decreased breath sounds with end expiratory wheezing Cardiac exam: Regular rate and rhythm normal S1-S2 with a 2/6 systolic ejection Chest wall: Scar noted, decreasing erythema, no warmth or tenderness, there is a dressing over her biopsy site, mastectomy noted Abdomen: Soft and nontender Extremities: No edema Objective Labs Result Diagrams: 03/19/21 05:41 03/19/21 05:41 Labs: Laboratory Results - last 24 hr 03/18/21 03/19/21 03/19/21 18:44 05:41 05:41 WBC 6.6 RBC 3.10 L Hgb 10.1 L Hct 30.0 L MCV 96.7 MCH 32.7 MCHC 33.8 RDW 17.3 H Plt Count 193 Neut % (Auto) 69.9 Lymph % (Auto) 14.7 L [place] % (Auto) 9.8 Eos % (Auto) 5.3 H Baso % (Auto) 0.3 Neut # (Auto) 4600 Lymph # (Auto) 1000 L [place] # (Auto) 600 Eos # (Auto) 300 Baso # (Auto) 0 APTT 32 Sodium 129 L Potassium 4.8 Chloride 98 Carbon Dioxide 28 BUN 38 H Creatinine 1.13 H Estimated GFR 46.3 L BUN/Creatinine Ratio 33.6 H Glucose 126 H Calcium 8.4 Magnesium 2.2 PFSH Medical History Breast cancer, left CHF (congestive heart failure) 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) Ischemic cardiomyopathy Status post bilateral mastectomy (11/09/16) Surgical History History of left heart catheterization Status post bilateral mastectomy Status post hysterectomy Family History Father Heart disease Polio Daughter Breast cancer in female Social History marital status: household members: spouse occupational status: employed Smoking Status: Current every day smoker alcohol intake: current substance use type: does not use Discharge Assessment & Plan Assessment and Plan Assessment: 1. Cellulitis of the left chest wall 2. Acute hypoxic respiratory failure 3. COPD exacerbation 4. Acute heart failure, with preserved ejection fraction 5. Acute kidney injury, improved 6. Status post I&D of the left lymph node and chest wall biopsies 7. History of breast cancer status post mastectomy in 2016 8. History of non-Hodgkin's lymphoma Plan of Treatment: Medications as prescribed Follow-up with Oncology next week Discharge Plan Discharge Plan Patient Disposition: Home Discharge orders & Medications Prescriptions: New nystatin [Nystop] 100,000 unit/gram Powder 1 applic topical TID PRN (Reason: Rash) Qty: 7 RF: 0 nystatin 100,000 unit/mL Suspension 500,000 unit PO TID 7 Days Qty: 105 RF: 0 Continued CA PANTOTHENATE/FOLIC ACID/VIT (MULTIVITAMIN) 1 tab PO QDAY Qty: 0 RF: 0 CHOLECALCIFEROL (VITAMIN D) 2,000 iu PO Q DAY Qty: 0 RF: 0 Lactobacillus acidophilus 1 EACH capsule 1 tab PO QDAY Qty: 0 RF: 0 ciclopirox [Ciclodan] 6.6 ML solution 3.3 ml TP QDAY Qty: 1 RF: 5 albuterol sulfate [Proventil HFA] 90 MCG/PUFF HFA aerosol inhaler 2 puff INH HSP PRN (Reason: Shortness Of Breath) Qty: 0 RF: 0 cephalexin 500 mg capsule 500 mg PO QID Qty: 40 RF: 0 levothyroxine 175 MCG tablet 0.15 mg PO QAM RF: 0 furosemide 40 mg Tablet 40 mg PO DAILY RF: 0 atorvastatin 40 mg Tablet 40 mg PO BEDTIME RF: 0 nicotine [Nicoderm CQ] 21 mg/24 hr Patch 24 Hour 1 patch TRANSDERMAL Q24H RF: 0 aspirin 81 mg Tablet,Chewable 81 mg PO DAILY RF: 0 lisinopril 5 mg Tablet 5 mg PO DAILY RF: 0 albuterol sulfate [ProAir HFA] 90 mcg/actuation Hfa Aerosol Inhaler 1 puff INHALATION Q4-6H PRN (Reason: Shortness Of Breath) RF: 0 multivitamin Capsule 1 cap PO DAILY RF: 0 apixaban 5 mg Tablet 5 mg PO BID RF: 0 metoprolol succinate 25 mg Cap,Sprinkle,Er 24hr Dose Pack 25 mg PO BID RF: 0 spironolactone 25 mg Tablet 12.5 mg PO DAILY RF: 0 Spiriva with HandiHaler 18 mcg Capsule, W/Inhalation Device 18 mcg INHALATION QAM RF: 0 exemestane [Aromasin] 25 MG tablet 25 mg PO QDAY Qty: 30 RF: 6 nitroglycerin [Nitrostat] 0.4 mg Tablet, Sublingual 0.4 mg sublingual PRN PRN (Reason: Chest Pain) RF: 0 Discontinued Zostavax (PF) 19,400 UNIT/0.65 ML suspension for reconstitution 0.5 ml SQ STAT Qty: 1 RF: 0 sulfamethoxazole-trimethoprim [Bactrim DS] 800-160 mg tablet 1 tab PO Q12H Qty: 20 RF: 0 Follow up/Referrals: Arpit Abdi MD [Primary Care Provider] - Diet/Activity/Treatments Oxygen: 2 liters during at rest 4 liters with activity Discharge Data Primary Care Provider: Arpit Abdi
--- NOTE | 2021-03-19 11:18 | CM.DANOTE ---
DCP/continued: Reviewed chart. Per provider in AM rounds patient medically stable for discharge today. [employer] met with patient explained role. Patient aware and very agreeable to d/c home. Patient will be on home 02 upon d/c. Patient does not feel that home health will be needed upon discharge. Patient provided with name/number of [facility] for future use. Patient made aware that once d/c'd from [facility] home health will need to be arranged through her provider. Patient returning home to [place] today with spouse. Spouse meeting 02 agency in [facility] parking lot to get 02 tanks and concentrator. Patient will need priority boarding pass for [place] this afternoon. RN/Coral aware and will make sure priority boarding pass is completed. Copy of Important Message from Medicare provided to patient. No additional needs identified. P: Home today with home 02. Spouse to provide transport. MARYANN Martinez
--- NOTE | 2021-03-19 11:55 | PT.IIE ---
Current Diagnoses Mastitis without abscess (03/14/21) Surgery Performed Operation Date: 03/17/21 17:15 Actual Procedures p I&D chest excisional lymph node biopsy(Left) - Chance Rod MD Surgical History (Last Reviewed 03/14/21 @ 23:52 by MAYRA Bruno) History of left heart catheterization Status post hysterectomy Medical History (Last Reviewed 03/15/21 @ 03:13 by Murray Romero DO) Breast cancer, left CHF (congestive heart failure) 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) Ischemic cardiomyopathy Status post bilateral mastectomy (11/09/16) Physical Therapy Inpatient Evaluation/Re-Eval M1 PT/OT-IP Prior Functional Status Start: 03/19/21 12:37 Freq: NEEDED Status: Active Protocol: Document 03/19/21 11:55 DLM (Rec: 03/19/21 12:51 DLM [id number]) Medical Review Prior Functional Status Medical History Reviewed Yes Diet/Fluid Consistency Regular Communication WNL Mobility and Gait Independent, uses FWW Activities of Daily Living and IADL's Independent with basic ADL's, Spouse helps when needed Prior Functional Level (Other details) 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 2 steps to enter with rail Home Equipment Front Wheel Walker Employment Status Self-Employed M2 PT-IP Current Condition Start: 03/19/21 12:37 Freq: NEEDED Status: Active Protocol: Document 03/19/21 11:55 DLM (Rec: 03/19/21 12:51 DLM [id number]) Physical Therapy Current Condition Current Condition Evaluation Date 03/19/21 Treatment Diagnosis cellulitis left breast, CHF, decreased activity tolerance Onset Date 03/14/21 Precautions Other Precautions oxygen at all times, fall risks edema left UE and breast area, surgically drained breast area 03/17/21 M3 PT-IP Subjective Start: 03/19/21 12:37 Freq: NEEDED Status: Active Protocol: Document 03/19/21 11:55 DLM (Rec: 03/19/21 12:51 DLM [id number]) Subjective Physical Therapy Visit Type Type Initial Evaluation Visit Start Time 10:25 Visit Stop Time 11:55 Total Visit Minutes 30 Number of SONAR SUBSYSTEM EQUIPMENT OPERATOR Visits 0 Physical Therapy Visit Comments Patient Comments She wants to go home today. She will talk to her about getting a wheelchair for home. Her got a bedside commode for home. Patient Goals Discharge home with to assist M4 PT-IP Mobility and Gait Start: 03/19/21 12:37 Freq: NEEDED Status: Active Protocol: Document 03/19/21 11:55 DLM (Rec: 03/19/21 12:51 DL [id number]) PT-Bed Mobility Assessment Supine to Sit Supine to Sit Standby Assistance,Bedrails Sit to Supine Sit to Supine Standby Assistance Scooting Scooting to Edge of Bed Standby Assistance PT-Transfer Assessment Sit to and From Stand Sit to and from Stand Standby Assistance,Use of Upper Extremities Equipment Transfer Assistive Device Gait Belt,Front Wheeled Walker Transfers Transfer Destination Bedside Commode Transfer Technique Stand Step Pivot Transfer Ability Level of Assist Standby Assistance,Contact Guard Assistance,Use of Upper Extremities Comments Mobility Comments pt up to bedside commode to urinate She is using 2 LPM oxygen at all times, O2 sat 91% during activity Gait Assessment Gait Gait Assistance Required: Standby Assistance,Contact Guard Assist Distance (Feet) 10 Assistive Devices Assistive Device Gait Belt,Front Wheeled Walker Gait Deviations General Gait Pattern Flexed Trunk Factors Limiting Gait Function Factors Limiting Gait Function Decreased Activity Tolerance Comments Gait Comments she fatigues with gait and returned to bed to rest, no light-headedness when up with oxygen at 2 LPM Stair Climbing Assessment Comments Stair Climbing Comments pt declined stair training reporting her Spouse can help her at home PT-Balance Assessment Sitting Balance and Reactions Static Sitting Balance Ability Good Dynamic Sitting Balance Ability Good Standing Balance and Reactions Static Standing Balance Ability Good Dynamic Standing Balance Ability Good Device Used FWW M5 PT-IP Objective Assessments Start: 03/19/21 12:37 Freq: NEEDED Status: Active Protocol: Document 03/19/21 11:55 DLM (Rec: 03/19/21 12:51 DL [id number]) Orientation Orientation/Cognition Level of Alertness Alert Orientation Name,Birthday,Date,Place, Situation Safety Awareness Understands Safety Issues Memory Description No Deficits Noted Gross Range of Motion Upper Extremity ROM Assessment Left Impaired Impairments pain and swelling left breast/ chest area interferes with shoulder motions Lower Extremity ROM Assessment Within Functional Limits Strength Upper Extremity Strength Assessment Left Impaired Shoulder pain left breast/chest area, able to hold FWW and use UE for light ADL's Lower Extremity Strength Assessment Within Functional Limits Coordination Assessment Gross Coordination Gross Coordination WNL Sensation Assessment Comments Sensation Comments no changes reported by pt Muscle Tone Muscle Tone WNL Yes M6 PT-IP Treatment Start: 03/19/21 12:37 Freq: NEEDED Status: Active Protocol: Document 03/19/21 11:55 DLM (Rec: 03/19/21 12:51 DLM [id number]) Physical Therapy Treatment Education Education Provided Safety Equipment Issued Equipment Type and Company pt plans to borrow a wheelchair from a place on [place] M7 PT-IP Assessment and Plan Start: 03/19/21 12:37 Freq: NEEDED Status: Active Protocol: Document 03/19/21 11:55 DLM (Rec: 03/19/21 12:51 DLM [id number]) PT Summary Assessment and Plan Potential Rehabilitation Potential Good Status of Condition at Evaluation Evolving Summary Impairments Pain,ROM,Strength,Transfers, Gait,Activity Tolerance Assessment Summary Deborah reports she got light- headed when getting up with nursing this morning but noted this was without oxygen. She tolerated ambulating in the room well this visit with the FWW. She fatigues quickly with light activity. She needed assist with toileting for her clothing and to wipe. She reports her Spouse and Daughter will assist her as needed at home. She could benefit from home health therapy but pt declines home health at this time. Discussed with pt that her low activity tolerance will be challenging at home. Pt wants to get a wheelchair for home and know where she can borrow one on [place]. She appears safe to discharge home if her Spouse is able to assist her. There is no family here to discuss discharge planning at this time. Goals Bed Mobility Goal Independent Transfer Goal Standby Assistance,Front Wheeled Walker Gait Goal Standby Assistance,Front Wheel Walker Gait Distance 50 feet Days to Meet Goals 3 Frequency of Treatment Frequency Of Treatment Once a Day Treatment Plan Physical Therapy Treatment Plan Bed Mobility Training,Transfer Training,Gait Training, Therapeutic Exercise,Balance Retraining,Discharge Planning Recommendations To Nursing Amount of Assist Needed 1 Person Assist Discharge Recommendations PT Discharge Recommendations Home with Assistance Other Discharge Recommendations she does not feel she need home health services, has family/friends to help Transportation Needs at Discharge Private Vehicle
[2021-03-19 12:00] VITALS: BP 103/50; PULSE 92; RESP 18; TEMP 36.6; O2SAT 95
[2021-03-19 12:10] VITALS: PULSE 94; RESP 20; O2SAT 92
[2021-03-19 15:50] VITALS: PULSE 108; RESP 20
--- NOTE | 2021-03-19 16:08 | PC.NURSE ---
PICC line removed, catheter intake. Discharge instructions given. Wheeled off of unit at 1605 via wheelchair to personal vehicle, driving home.
== END 2021-03-19 16:05 | disposition home or self-care (01) | DRG 264 ==
LOC: ED 19:49 → AC 19:53
PROVIDERS: Emergency Medicine; Internal Medicine; Specialist; Admitting Provider Nurse Practitioner Family; Emergency Provider Emergency Medicine; PCP Family Medicine; Referring Provider Emergency Medicine; Visit Provider Nurse Practitioner Family
PROC: 07B60ZX Excision of Left Axillary Lymphatic, Open Approach, Diagnostic (ICD-10-PCS; principal; 2021-03-17 17:15)
DX: I50.33 Acute on chronic diastolic (congestive) heart failure (principal); N17.9 Acute kidney failure, unspecified; E87.1 Hypo-osmolality and hyponatremia; I48.19 Other persistent atrial fibrillation; C77.3 Secondary and unspecified malignant neoplasm of axilla and upper limb lymph nodes; C79.89 Secondary malignant neoplasm of other specified sites; N61.0 Mastitis without abscess; I25.5 Ischemic cardiomyopathy; F17.200 Nicotine dependence, unspecified, uncomplicated; E78.5 Hyperlipidemia, unspecified; R60.9 Edema, unspecified; J44.9 Chronic obstructive pulmonary disease, unspecified; I25.10 Atherosclerotic heart disease of native coronary artery without angina pectoris; I95.9 Hypotension, unspecified; R07.9 Chest pain, unspecified; Z20.822 Contact with and (suspected) exposure to COVID-19; Z85.3 Personal history of malignant neoplasm of breast
CPT/HCPCS: 36415; 38525; 71045; 71250; 71275; 76642; 76770; 78582; 80048; 80053; 80076; 81001; 82550; 82570; 83605; 83690; 83735; 83880; 84145; 84300; 84484; 85025; 85027; 85610; 85730; 87040; 87070; 87075; 87086; 87205; 87635; 87797; 93005; 93307; 93970; 94618; 94640; 94762; 96361; 96365; 96375; 97162; 99232; 99284; 99406; A9539; A9540; C9803; J0295; J1642; J1644; J1940; J2250; J2704; J3010; J7613; Q9967